=== PATIENT | male | born 1965 | race Caucasian/White ===

== ENCOUNTER 2019-04-21 22:47 | Emergency (ER) | payer BC ==
[~2019-04-21] VITALS: Ht 180.3 cm; Wt 94.3 kg
[~2019-04-21 22:47] MED LIST: ACETAMINOPHEN-1 EACH PO; Aspirin EC81 MG PO; CENTRUM SILVER1 EAC1 PO; METO50ER PO; OSTEO BI-FLEX1 EAC2 PO; Omega 3 1,0001 EACH PO; PANT40 PO; Prinivil10 MG PO; ROSU5 PO
== END 2019-04-22 04:04 | disposition home or self-care (01) ==
LOC: ER 22:47
DX: T18.128A Food in esophagus causing other injury, initial encounter (principal); E78.5 Hyperlipidemia, unspecified; K44.9 Diaphragmatic hernia without obstruction or gangrene; I21.3 ST elevation (STEMI) myocardial infarction of unspecified site; Z79.82 Long term (current) use of aspirin; Z79.899 Other long term (current) drug therapy; Z87.891 Personal history of nicotine dependence; W45.8XXA Other foreign body or object entering through skin, initial encounter
CPT/HCPCS: 96374; 99283-25; J1610

== ENCOUNTER 2019-04-27 09:04 | Day surgery (SDC) | payer BC ==
[~2019-04-27] VITALS: Ht 182.9 cm; Wt 93.8 kg
--- NOTE | 2019-04-27 11:16 | NUR ---
04/27/19 1116 Leslie Okeefe RN IS KEEPING PT UPDATED REGARDING THE DEALY.
--- NOTE | 2019-04-27 13:17 | NUR ---
04/27/19 131Ayesha Rose TATTOO MARKER IN SIGMOID. USED 2.5CC TATTOO INK
== END 2019-04-27 13:56 | disposition home or self-care (01) ==
LOC: ORSCSDS 09:04
PROVIDERS: Student in an Organized Health Care Education/Training Program
PROC: 0DBN8ZX Excision of Sigmoid Colon, Via Natural or Artificial Opening Endoscopic, Diagnostic (ICD-10-PCS; principal; 2019-04-27 11:00)
PROC: 0DBK8ZX Excision of Ascending Colon, Via Natural or Artificial Opening Endoscopic, Diagnostic (ICD-10-PCS; principal; 2019-04-27 11:00)
PROC: 3E0H8GC Introduction of Other Therapeutic Substance into Lower GI, Via Natural or Artificial Opening Endoscopic (ICD-10-PCS; principal; 2019-04-27 11:00)
PROC: 0DB48ZX Excision of Esophagogastric Junction, Via Natural or Artificial Opening Endoscopic, Diagnostic (ICD-10-PCS; principal; 2019-04-27 11:00)
PROC: 0DB68ZX Excision of Stomach, Via Natural or Artificial Opening Endoscopic, Diagnostic (ICD-10-PCS; principal; 2019-04-27 11:00)
DX: Z12.11 Encounter for screening for malignant neoplasm of colon (principal); D12.2 Benign neoplasm of ascending colon; D12.5 Benign neoplasm of sigmoid colon; K63.5 Polyp of colon; K64.8 Other hemorrhoids; K57.30 Diverticulosis of large intestine without perforation or abscess without bleeding; R13.14 Dysphagia, pharyngoesophageal phase; K21.9 Gastro-esophageal reflux disease without esophagitis; K31.7 Polyp of stomach and duodenum; E78.5 Hyperlipidemia, unspecified; I10 Essential (primary) hypertension; I25.2 Old myocardial infarction; G47.33 Obstructive sleep apnea (adult) (pediatric); Z87.891 Personal history of nicotine dependence; Z79.82 Long term (current) use of aspirin; Z79.899 Other long term (current) drug therapy
CPT/HCPCS: 88305; 88342; J2704; J7120

== ENCOUNTER 2023-06-25 10:23 | Day surgery (SDC) | payer BC ==
[2023-06-25] VITALS (13 sets, daily range): BP systolic 127–144; BP diastolic 79–95
[~2023-06-25] VITALS: Ht 182.9 cm; Wt 105.4 kg
[~2023-06-25 10:23] MED LIST changes: +ONDA4 PO
[2023-06-25] MEDS ORDERED: ALBU90OI INH (10:33)
--- NOTE | 2023-06-25 10:47 | NUR ---
Ambulatory in Day Surgery History, Chart, Medications and Allergies reviewed before start of procedure. Pre-Op teaching done. Pt verbalizes understanding. Patient States Post-Procedure ride home has been arranged.
--- NOTE | 2023-06-25 12:10 | NUR ---
06/25/23 1210 Oumar Velarde MONITOR INTACT WITH CONTINUOUS PULSE OXIMETRY, CONTINUOUS END TITAL CO2, AND INTERMITTENT BLOOD PRESSURE.History, Chart, Medications and Allergies reviewed before start of procedure.3-LEAD EKG REVIEWED WITH PHYSICIAN PRIOR TO START OF PROCEDURE.See Anesthesia record, Dr. Frazier.
--- NOTE | 2023-06-25 12:50 | NUR ---
PT TO DAY SURGERY STEP DOWN FROM PACU. PT AWAKE AND ORIENTED. ABLE TO MOVE SELF IN BED. DENIES PAIN. PT HAS 2 INCISION SITES ON RIGHT UPPER CHEST AND LOWER NECK THAT ARE COVERED WITH GAUZE AND TEGADERM; BOTH ARE C/D/I. PT HAS NO COMPLAINTS AT THIS TIME.
--- NOTE | 2023-06-25 13:10 | NUR ---
INCISION SITES REMAIN UNCHANGED. PT TOLERATING PO FLUIDS WELL. CRACKERS GIVEN.
--- NOTE | 2023-06-25 13:26 | NUR ---
Discharge instructions reviewed with patient. Patient verbalizes understanding. Copy given to patient to take home. Patient States Post-Procedure ride home has been arranged. Discharged via wheelchair to private car for ride home.
== END 2023-06-25 13:32 | disposition home or self-care (01) ==
LOC: ORSCMMR 10:23 → ORD 12:15 → ORSCMMR 13:32
PROVIDERS: Surgery
PROC: 0JH63WZ Insertion of Totally Implantable Vascular Access Device into Chest Subcutaneous Tissue and Fascia, Percutaneous Approach (ICD-10-PCS; principal; 2023-06-25 11:00)
PROC: 0DBN8ZX Excision of Sigmoid Colon, Via Natural or Artificial Opening Endoscopic, Diagnostic (ICD-10-PCS; principal; 2023-06-25 11:00)
PROC: B543ZZA Ultrasonography of Right Jugular Veins, Guidance (ICD-10-PCS; principal; 2023-06-25 11:00)
PROC: 05HM33Z Insertion of Infusion Device into Right Internal Jugular Vein, Percutaneous Approach (ICD-10-PCS; principal; 2023-06-25 11:00)
DX: R93.3 Abnormal findings on diagnostic imaging of other parts of digestive tract (principal); C18.6 Malignant neoplasm of descending colon; I10 Essential (primary) hypertension; I25.2 Old myocardial infarction; I25.10 Atherosclerotic heart disease of native coronary artery without angina pectoris; K21.9 Gastro-esophageal reflux disease without esophagitis; G47.33 Obstructive sleep apnea (adult) (pediatric); Z79.899 Other long term (current) drug therapy; Z79.82 Long term (current) use of aspirin
CPT/HCPCS: 77001; 88305; A9270; C1788; J0690; J1100; J1642; J2405; J2704; J3010; J7120

== ENCOUNTER → 2023-07-01 | Outpatient (CLI) | payer BC ==
[~2023-07-01] MED LIST changes: +ALBU90OI INH
[2023-07-02 10:19] LABS: BASOPHILS ABSOLUTE AUTO 0.07 K/mm3 (0.00-0.23); BASOPHILS PERCENT AUTO 1 % (0-2); EOSINOPHILS ABSOLUTE AUTO 0.27 K/mm3 (0.00-0.68); EOSINOPHILS PERCENT AUTO 4 % (0-6); Hematocrit 45.4 % (37.0-53.0); Hemoglobin 15.5 g/dL (13.5-17.5); IMMATURE GRAN ABSOLUTE AUTO 0.01 K/mm3 (0.00-0.10); IMMATURE GRAN PERCENT AUTO 0 % (0-1); LYMPHOCYTES ABSOLUTE AUTO 1.66 K/mm3 (0.84-5.20); LYMPHOCYTES PERCENT AUTO 26 % (21-46); MONOCYTES PERCENT AUTO 13 % (4-13); Mean Corpuscular HGB 33.6 pg (26.0-34.0); Mean Corpuscular HGB Conc 34.1 g/dL (31.5-36.5); Mean Corpuscular Volume 99 fL (80-100); Mean Platelet Volume 12.2 fL (9.1-12.4); NEUTROPHILS ABSOLUTE AUTO 3.55 K/mm3 (1.96-9.15); NEUTROPHILS PERCENT AUTO 56 % (41-73); Platelet Count 146 K/mm3 (150-400); RDW Coefficient Variation 12.3 % (11.7-14.2); RDW Standard Deviation 44.6 fL (35.1-46.3); Red Blood Cell Count 4.61 M/mm3 (4.30-5.90)
[2023-07-02 10:43] LABS: Albumin, Blood 3.7 g/dL (3.4-5.0); Bilirubin, Total 0.5 mg/dL (0.1-1.0); Bun/Creatinine Ratio 16.8 (12.0-20.0); Calcium, Blood 9.2 mg/dL (8.5-10.1); Creatinine, Blood 0.84 mg/dL (0.60-1.20); Globulin, Blood 3.7 g/dL (2.2-4.0); Potassium, Blood 4.3 mmol/L (3.5-5.5); Total Protein, Blood 7.4 g/dL (6.4-8.2)
[2023-07-06 10:40] LABS: White Blood Cell Count 6.36 K/mm3 (4.00-11.30)
== END | disposition home or self-care (01) ==
LOC: LAB 18:23 → LAB SHORT 18:23
PROVIDERS: Internal Medicine Hematology & Oncology
DX: C18.6 Malignant neoplasm of descending colon (principal); C77.2 Secondary and unspecified malignant neoplasm of intra-abdominal lymph nodes
CPT/HCPCS: 80053; 82378; 85025

== ENCOUNTER 2023-09-26 17:47 | Emergency (ER) | payer BC, OTHER ==
[~2023-09-26] VITALS: Ht 182.9 cm; Wt 94.8 kg
[2023-09-26] MEDS ORDERED: NS 1,000 ML IV SCH (18:10)
[2023-09-26 18:11] LABS: Hematocrit 36.7 % (37.0-53.0); Hemoglobin 12.7 g/dL (13.5-17.5); Mean Corpuscular HGB 35.9 pg (26.0-34.0); Mean Corpuscular HGB Conc 34.6 g/dL (31.5-36.5); Mean Corpuscular Volume 104 fL (80-100); Mean Platelet Volume 10.4 fL (9.1-12.4); Platelet Count 71 K/mm3 (150-400); RDW Coefficient Variation 15.9 % (11.7-14.2); RDW Standard Deviation 61.6 fL (35.1-46.3); Red Blood Cell Count 3.54 M/mm3 (4.30-5.90); White Blood Cell Count 4.18 K/mm3 (4.00-11.30)
[2023-09-26 18:27] LABS: Albumin/Globulin Ratio 0.8 (0.8-1.8); Bilirubin, Total 0.9 mg/dL (0.1-1.0); Bun/Creatinine Ratio 19.4 (12.0-20.0); Calcium, Blood 8.8 mg/dL (8.5-10.1); Creatinine, Blood 0.72 mg/dL (0.60-1.20); Potassium, Blood 3.8 mmol/L (3.5-5.5)
[2023-09-26] MEDS ORDERED: HYDROcodone 5-APAP 325 TAB PO ONE (18:30)
[2023-09-26] MEDS ORDERED: Norco 5-325 Ta1 EACH PO (18:30)
[2023-09-26] MEDS ORDERED: Ondansetron HCl 2 MG / ML 2ML Vial IV ONE (18:30)
[2023-09-26] MEDS ORDERED: METO10 PO (18:31)
[2023-09-26 18:32] LABS: BAND PERCENT MAN 7 % (0-8); BASOPHILS PERCENT MAN 0 % (0-2); EOSINOPHILS ABSOLUTE MAN 0.04 K/mm3 (0.00-0.68); EOSINOPHILS PERCENT MAN 1 % (0-6); LYMPHOCYTES ABSOLUTE MAN 0.66 K/mm3 (0.84-5.20); LYMPHOCYTES PERCENT MAN 16 % (21-46); MONOCYTES ABSOLUTE MAN 0.29 K/mm3 (0.16-1.47); MONOCYTES PERCENT MAN 7 % (4-13); NEUTROPHILS ABSOLUTE MAN 3.17 K/mm3 (1.96-9.15); SEG NEUTROPHILS PERCENT MAN 69 % (41-73); TOTAL CELLS COUNTED 100
[2023-09-26] MEDS ORDERED: Diflucan100 MG (18:32)
[2023-09-26 19:30] VITALS: BP 114/73
[2023-09-26 19:36] LABS: Adenovirus Not Detected (NOT DETECT); Bordetella pertussis Not Detected (NOT DETECT); Chlamydophila pneumoniae Not Detected (NOT DETECT); Coronavirus 229E Not Detected (NOT DETECT); Coronavirus HKU1 Not Detected (NOT DETECT); Coronavirus NL63 Not Detected (NOT DETECT); Coronavirus OC43 Not Detected (NOT DETECT); Human Metapneumovirus Not Detected (NOT DETECT); Human Rhinovirus/Enterovirus Not Detected (NOT DETECT); Influenza A/2009-H1 Detected (NOT DETECT); Influenza A/H1 Not Detected (NOT DETECT); Influenza A/H3 Not Detected (NOT DETECT); Influenza B Not Detected (NOT DETECT); Mycoplasma pneumoniae Not Detected (NOT DETECT); Parainfluenza Virus 1 Not Detected (NOT DETECT); Parainfluenza Virus 2 Not Detected (NOT DETECT); Parainfluenza Virus 3 Not Detected (NOT DETECT); Parainfluenza Virus 4 Not Detected (NOT DETECT); Respiratory Syncytial Virus Not Detected (NOT DETECT); SARS-Cov-2 (COVID-19), BioFire Not Detected (NOT DETECT)
[2023-09-26 20:01] LABS: Source, Urine Voided
[2023-09-26 20:04] LABS: Bilirubin, Urine Neg (Neg); Blood, Urine Neg (Neg); Glucose Qualitative, Urine Neg (Neg); Ketones, Urine Neg (Neg); Leukocyte Esterase, Urine Neg (Neg); Nitrite, Urine Neg (Neg); Protein, Urine 1+ (Neg); Specific Gravity, Urine 1.015 (1.003-1.022); Urobilinogen, Urine NORM (Normal)
[2023-09-26 20:11] LABS: Appearance, Urine Clear (Clear); Color, Urine Yellow (P-Yellow)
[2023-09-26] MEDS ORDERED: Oseltamivir Phosphate 75 MG Cap PO ONE (20:15)
[2023-09-26] MEDS ORDERED: OSEL75CA PO (20:35)
== END 2023-09-26 20:43 | disposition home or self-care (01) ==
LOC: ER 17:47
PROVIDERS: Emergency Medicine
DX: J10.1 Influenza due to other identified influenza virus with other respiratory manifestations (principal); C18.9 Malignant neoplasm of colon, unspecified; Z87.891 Personal history of nicotine dependence; I25.2 Old myocardial infarction; E78.5 Hyperlipidemia, unspecified; Z79.82 Long term (current) use of aspirin; Z79.899 Other long term (current) drug therapy; Z88.8 Allergy status to other drugs, medicaments and biological substances
CPT/HCPCS: 0202U; 36415; 71045; 80053; 83605; 85025; 87040; 96361; 96374; 99283-25; A9270; J2405; J7030

== ENCOUNTER 2023-10-18 18:55 | Emergency (ER) | payer BC, OTHER ==
[~2023-10-18] VITALS: Ht 182.9 cm; Wt 90.7 kg
[~2023-10-18 18:55] MED LIST changes: +Diflucan100 MG; +METO10 PO; +Norco 5-325 Ta1 EACH PO; +OSEL75CA PO
[2023-10-18 19:57] LABS: BASOPHILS ABSOLUTE AUTO 0.02 K/mm3 (0.00-0.23); BASOPHILS PERCENT AUTO 1 % (0-2); EOSINOPHILS ABSOLUTE AUTO 0.05 K/mm3 (0.00-0.68); EOSINOPHILS PERCENT AUTO 1 % (0-6); Hematocrit 30.7 % (37.0-53.0); Hemoglobin 10.7 g/dL (13.5-17.5); IMMATURE GRAN ABSOLUTE AUTO 0.01 K/mm3 (0.00-0.10); IMMATURE GRAN PERCENT AUTO 0 % (0-1); LYMPHOCYTES ABSOLUTE AUTO 1.29 K/mm3 (0.84-5.20); LYMPHOCYTES PERCENT AUTO 36 % (21-46); MONOCYTES ABSOLUTE AUTO 1.21 K/mm3 (0.16-1.47); MONOCYTES PERCENT AUTO 34 % (4-13); Mean Corpuscular HGB 36.3 pg (26.0-34.0); Mean Corpuscular HGB Conc 34.9 g/dL (31.5-36.5); Mean Corpuscular Volume 104 fL (80-100); Mean Platelet Volume 10.6 fL (9.1-12.4); NEUTROPHILS ABSOLUTE AUTO 1.01 K/mm3 (1.96-9.15); NEUTROPHILS PERCENT AUTO 28 % (41-73); Platelet Count 109 K/mm3 (150-400); RDW Coefficient Variation 15.9 % (11.7-14.2); RDW Standard Deviation 60.3 fL (35.1-46.3); Red Blood Cell Count 2.95 M/mm3 (4.30-5.90); White Blood Cell Count 3.59 K/mm3 (4.00-11.30)
[2023-10-18 20:04] LABS: Source, Urine Clean Catch
[2023-10-18 20:07] LABS: Appearance, Urine Clear (Clear); Bilirubin, Urine Neg (Neg); Blood, Urine 3+ (Neg); Color, Urine Yellow (P-Yellow); Glucose Qualitative, Urine Neg (Neg); Ketones, Urine Neg (Neg); Leukocyte Esterase, Urine Neg (Neg); Nitrite, Urine Neg (Neg); Protein, Urine Neg (Neg); Specific Gravity, Urine 1.015 (1.003-1.022); Urobilinogen, Urine NORM (Normal)
[2023-10-18 20:14] LABS: Bacteria Few /hpf; Squamous Epithelial Cells Rare /hpf (Few); White Blood Cells, Urine 0-2 /hpf (0-5)
[2023-10-18 20:22] LABS: Albumin/Globulin Ratio 0.9 (0.8-1.8); Bilirubin, Total 0.7 mg/dL (0.1-1.0); Bun/Creatinine Ratio 14.7 (12.0-20.0); Calcium, Blood 8.5 mg/dL (8.5-10.1); Creatinine, Blood 1.84 mg/dL (0.60-1.20); Globulin, Blood 3.5 g/dL (2.2-4.0); Magnesium, Blood 1.2 mg/dL (1.6-2.4); Potassium, Blood 4.7 mmol/L (3.5-5.5); Total Protein, Blood 6.5 g/dL (6.4-8.2)
[2023-10-18] MEDS ORDERED: NS 1,000 ML IV SCH (20:45)
[2023-10-18 21:04] LABS: Influenza A, PCR NEGATIVE (NEGATIVE); Influenza B, PCR NEGATIVE (NEGATIVE); Resp Syncytial Virus, PCR NEGATIVE (NEGATIVE); SARS-Cov-2 (COVID-19) PCR, MMC NEGATIVE (NEGATIVE)
[2023-10-18 23:28] VITALS: BP 110/65
== END 2023-10-18 23:29 | disposition home or self-care (01) ==
LOC: ER 18:55
PROVIDERS: Physician Assistant
DX: N17.9 Acute kidney failure, unspecified (principal); E86.0 Dehydration; R50.9 Fever, unspecified; C78.7 Secondary malignant neoplasm of liver and intrahepatic bile duct; I25.2 Old myocardial infarction; Z88.8 Allergy status to other drugs, medicaments and biological substances; Z79.899 Other long term (current) drug therapy; Z79.82 Long term (current) use of aspirin; Z87.891 Personal history of nicotine dependence
CPT/HCPCS: 0241U; 71046; 80053; 81001; 83605; 83735; 85025; 93005; 93010; 96360; 99284-25; J7030

== ENCOUNTER 2023-12-30 15:51 | Emergency (ER) | payer BC, OTHER ==
[~2023-12-30] VITALS: Ht 182.9 cm; Wt 93.9 kg
[~2023-12-30 15:51] MED LIST changes: +AMOCLA875 PO; +Acetaminophen325 M1 PO; +Aldactone50 MG PO; +BUME2 PO; +DEXA2 PO; +FENTANYL1 EA10 TOP; +HYDROCODONE-AC1 EA19 PO; +K-Phos Origina500 MG PO; +METR500 PO; +PANTOPRAZOLE SO40 M2 PO; +POTCHL20ER PO; +REGLAN1013 PO
[2023-12-30] MEDS ORDERED: MIRT15ST (20:57)
[2023-12-30] MEDS ORDERED: OXYC10ER PO (20:58)
[2023-12-30] MEDS ORDERED: METO5A PO (20:58)
[2023-12-30] MEDS ORDERED: ONDA4 PO (20:58)
[2023-12-30] MEDS ORDERED: CIME400 PO (22:38)
[2023-12-30 22:56] VITALS: BP 145/84
== END 2023-12-30 22:56 | disposition home or self-care (01) ==
LOC: ER 15:51
DX: R10.9 Unspecified abdominal pain (principal); C18.9 Malignant neoplasm of colon, unspecified; R60.0 Localized edema; Z88.8 Allergy status to other drugs, medicaments and biological substances; Z79.899 Other long term (current) drug therapy; Z79.891 Long term (current) use of opiate analgesic; I25.2 Old myocardial infarction; E78.5 Hyperlipidemia, unspecified; Z87.891 Personal history of nicotine dependence
CPT/HCPCS: 74177; 99284-25; Q9967

== ENCOUNTER 2024-03-07 12:05 | Day surgery (SDC) | payer BC, OTHER ==
[~2024-03-07] VITALS: Ht 182.9 cm; Wt 101.9 kg
[~2024-03-07 12:05] MED LIST changes: +Acetaminophen650 M1 PO; +BACLOFEN10 M4 PO; +Bumetanide2 MG PO; +CIME400 PO; +DRAMAMINE25 M3 PO; -FENTANYL1 EA10 TOP; +FENTANYL1 EAC7 TOP; +FUROSEMIDE40 MG PO; +GABA300 PO; +Lactated Ringer's 1,000 ML IV ONE; +METO5A PO; +MIRT15ST; +MIRTAZAPINE7.5 M1 PO; +Methocarbamol750 MG PO; +OXYC10ER PO; +OXYC10TA19 PO; +SPIRONOLACTONE50 MG PO; +TRAZ50 PO; +Voltaren100 GM TOP; +Zofran8 MG PO; +propofoL 50 ML IV ONE
[2024-03-07] MEDS ORDERED: Lactated Ringer's 1,000 ML IV ONE (13:00)
--- NOTE | 2024-03-07 14:29 | NUR ---
03/07/24 1429 Lisa Shen PT. WITH FRAGILE SKIN. PT. WITH MULTIPLE REDNESS ALL OVER HIS ARMS. PT. WITH LARGE AMT. SWELLING IN HIS LEGS & ABDOMEN. DR. TRINIDAD AWARE.
--- NOTE | 2024-03-07 15:03 | NUR ---
03/07/24 1503 Lisa Shen PT. VERBALIZED NO DIFFERENT PAIN THAN WHEN HE CAME IN. PT. DENIES ANY TROUBLE SWALLOWING. PT. DENIES HAVING A SORE THROAT.
[2024-03-07 15:07] VITALS: BP 100/61
== END 2024-03-07 14:20 | disposition home or self-care (01) ==
LOC: ORSCSDS 12:05
PROVIDERS: Surgery
PROC: 0DB78ZX Excision of Stomach, Pylorus, Via Natural or Artificial Opening Endoscopic, Diagnostic (ICD-10-PCS; principal; 2024-03-07 13:00)
DX: K29.70 Gastritis, unspecified, without bleeding (principal); C18.9 Malignant neoplasm of colon, unspecified; C78.7 Secondary malignant neoplasm of liver and intrahepatic bile duct; C77.9 Secondary and unspecified malignant neoplasm of lymph node, unspecified; D64.89 Other specified anemias; R93.5 Abnormal findings on diagnostic imaging of other abdominal regions, including retroperitoneum; D61.1 Drug-induced aplastic anemia; D63.8 Anemia in other chronic diseases classified elsewhere; I25.10 Atherosclerotic heart disease of native coronary artery without angina pectoris; I25.2 Old myocardial infarction; I12.9 Hypertensive chronic kidney disease with stage 1 through stage 4 chronic kidney disease, or unspecified chronic kidney disease; N18.9 Chronic kidney disease, unspecified; E78.5 Hyperlipidemia, unspecified; G47.33 Obstructive sleep apnea (adult) (pediatric); Z79.899 Other long term (current) drug therapy; Z79.82 Long term (current) use of aspirin; Z87.891 Personal history of nicotine dependence
CPT/HCPCS: 88305; 88342; J2704; J7120

== ENCOUNTER 2024-03-10 12:54 | Inpatient (IN) | payer BC, OTHER ==
[~2024-03-10] VITALS: Ht 182.9 cm; Wt 97.0 kg
[~2024-03-10 12:54] MED LIST changes: -Lactated Ringer's 1,000 ML IV ONE; -propofoL 50 ML IV ONE
[2024-03-10 13:57] LABS: Source, Urine Clean Catch
[2024-03-10 13:59] LABS: Appearance, Urine Clear (Clear); Bilirubin, Urine Neg (Neg); Blood, Urine Neg (Neg); Color, Urine Yellow (P-Yellow); Glucose Qualitative, Urine Neg (Neg); Ketones, Urine Neg (Neg); Leukocyte Esterase, Urine Neg (Neg); Nitrite, Urine Neg (Neg); Protein, Urine Neg (Neg); Specific Gravity, Urine 1.015 (1.003-1.022); Urobilinogen, Urine NORM (Normal)
[2024-03-10 14:16] LABS: BASOPHILS ABSOLUTE AUTO 0.07 K/mm3 (0.00-0.23); BASOPHILS PERCENT AUTO 1 % (0-2); EOSINOPHILS ABSOLUTE AUTO 0.13 K/mm3 (0.00-0.68); EOSINOPHILS PERCENT AUTO 2 % (0-6); Hematocrit 31.3 % (37.0-53.0); Hemoglobin 10.2 g/dL (13.5-17.5); IMMATURE GRAN ABSOLUTE AUTO 0.02 K/mm3 (0.00-0.10); IMMATURE GRAN PERCENT AUTO 0 % (0-1); LYMPHOCYTES ABSOLUTE AUTO 1.04 K/mm3 (0.84-5.20); LYMPHOCYTES PERCENT AUTO 15 % (21-46); MONOCYTES ABSOLUTE AUTO 1.07 K/mm3 (0.16-1.47); MONOCYTES PERCENT AUTO 15 % (4-13); Mean Corpuscular HGB 29.5 pg (26.0-34.0); Mean Corpuscular HGB Conc 32.6 g/dL (31.5-36.5); Mean Corpuscular Volume 91 fL (80-100); Mean Platelet Volume 9.2 fL (9.1-12.4); NEUTROPHILS ABSOLUTE AUTO 4.78 K/mm3 (1.96-9.15); NEUTROPHILS PERCENT AUTO 67 % (41-73); Platelet Count 145 K/mm3 (150-400); RDW Standard Deviation 59.8 fL (35.1-46.3); Red Blood Cell Count 3.46 M/mm3 (4.30-5.90); White Blood Cell Count 7.11 K/mm3 (4.00-11.30)
[2024-03-10 14:33] LABS: Albumin, Blood 2.3 g/dL (3.4-5.0); Albumin/Globulin Ratio 0.6 (0.8-1.8); Bilirubin, Total 0.8 mg/dL (0.1-1.0); Bun/Creatinine Ratio 10.2 (12.0-20.0); Calcium, Blood 7.9 mg/dL (8.5-10.1); Creatinine, Blood 0.98 mg/dL (0.60-1.20); Globulin, Blood 3.6 g/dL (2.2-4.0); Potassium, Blood 3.8 mmol/L (3.5-5.5); Total Protein, Blood 5.9 g/dL (6.4-8.2)
[2024-03-10] MEDS ORDERED: CEPH500 PO (15:48)
[2024-03-10] MEDS ORDERED: Lidocaine 2% Jelly Uro-Jet UR ONE (15:55)
[2024-03-10] MEDS ORDERED: Nystatin 100,000 Unit/GM CREAM 15 GM TOP ONE (16:00)
[2024-03-10] MEDS ORDERED: Furosemide 10 MG/ML 10ML Vial IV ONE (16:00)
[2024-03-10] MEDS ORDERED: Polyethylene Glycol 3350 17 gm PO PRN (17:50)
[2024-03-10] MEDS ORDERED: OxyCODONE HCL 5 MG TAB PO PRN (17:50)
[2024-03-10] MEDS ORDERED: Ondansetron HCl 2 MG / ML 2ML Vial IV PRN (17:50)
[2024-03-10] MEDS ORDERED: Docusate Sodium/Senna 1 Tab PO PRN (17:55)
[2024-03-10] MEDS ORDERED: Morphine Sulfate 4 MG/1 ML Injection IV PRN (17:55)
[2024-03-10] MEDS ORDERED: Metoclopramide HCl 5MG / ML 2ML Vial IV PRN (17:55)
[2024-03-10] MEDS ORDERED: Furosemide 40 MG Tab PO SCH (18:00)
[2024-03-10 19:53] VITALS: BP 125/82
[2024-03-10] MEDS ORDERED: Methocarbamol 500 MG Tab PO PRN (20:45)
[2024-03-10] MEDS ORDERED: FentaNYL 50 MCG Patch TOP SCH (20:45)
[2024-03-10] MEDS ORDERED: Gabapentin 300 MG Cap PO SCH (21:00)
[2024-03-11 02:44] VITALS: BP 114/65
--- NOTE | 2024-03-11 04:57 | NUR ---
NOC SHIFT SUMMARY PT HAS BEEN VERY PAINFUL THIS SHIFT IN HIS LEFT FOOT, LEGS, SCROTUM, BLADDER AND ABDOMEN BUT RESPONDS WELL TO PAIN MEDICATION AND IS ABLE TO NAP IN BETWEEN PAIN MED DOSES. PT HAS AN ORDER FOR JENNY HOSE. HE IS ABLE TO TOLERATE JENNY HOSE ON HIS RIGHT LEG BUT ASKED ME TO TAKE OFF THE ONE ON HIS LEFT LEG BECAUSE IT WAS TOO PAINFUL. I WISAM WRAPPED HIS LEFT LEG TO HELP WITH SWELLING. PT ADMITTED WITH CHRONIC FOOT ULCERS ON THE TOP OF HIS LEFT FOOT (SEE PICS IN PAPER CHART). APPARENTLY HE GETS WOUND CARE TWICE A WEEK. PT HAS A RASH IN BETWEEN HIS SCROTUM AND HIS THIGHS AND NYSTATIN CREAM WAS APPLIED IN THE ER. HE WAS GIVEN IV LASIX IN THE ER AND HAD 2000ML OF URINE OUT BEFORE COMING TO THE FLOOR. I MADE HIM A SLING FOR HIS VERY SWOLLEN SCROTUM. HE DOES HAVE AN UNACCESSED R CHEST PORT A CATH BUT FOR NOW HAS A FUNCTIONING LAC IV SL. NEW FENTANYL PATCH APPLIED TO HIS LEFT CHEST. OLD FENTANYL PATCH FROM HOME WASTED IN SHARPS CONTAINER AND WITNESSED BY CHARGE NURSE GRACY LEGER. PT IS ABLE TO WALK WITH A FWW AND X1 ASSIST. HE IS A BIT FORGETFUL AND APPEARS TO HAVE SOME STML. BED ALARM IS ON, FALL PRECAUTIONS IN PLACE, CALL LIGHT WITHIN REACH.
[2024-03-11 05:21] LABS: BASOPHILS ABSOLUTE AUTO 0.08 K/mm3 (0.00-0.23); BASOPHILS PERCENT AUTO 1 % (0-2); EOSINOPHILS ABSOLUTE AUTO 0.16 K/mm3 (0.00-0.68); EOSINOPHILS PERCENT AUTO 3 % (0-6); Hematocrit 26.8 % (37.0-53.0); Hemoglobin 8.7 g/dL (13.5-17.5); IMMATURE GRAN ABSOLUTE AUTO 0.01 K/mm3 (0.00-0.10); IMMATURE GRAN PERCENT AUTO 0 % (0-1); LYMPHOCYTES ABSOLUTE AUTO 1.08 K/mm3 (0.84-5.20); LYMPHOCYTES PERCENT AUTO 19 % (21-46); MONOCYTES ABSOLUTE AUTO 0.67 K/mm3 (0.16-1.47); MONOCYTES PERCENT AUTO 12 % (4-13); Mean Corpuscular HGB Conc 32.5 g/dL (31.5-36.5); Mean Corpuscular Volume 89 fL (80-100); Mean Platelet Volume 9.3 fL (9.1-12.4); NEUTROPHILS ABSOLUTE AUTO 3.74 K/mm3 (1.96-9.15); NEUTROPHILS PERCENT AUTO 65 % (41-73); Platelet Count 125 K/mm3 (150-400); RDW Coefficient Variation 18.2 % (11.7-14.2); RDW Standard Deviation 59.7 fL (35.1-46.3); White Blood Cell Count 5.74 K/mm3 (4.00-11.30)
[2024-03-11 05:33] LABS: International Normalized Ratio 1.24; Prothrombin Time Results 13.1 Sec (9.7-11.5)
[2024-03-11 05:52] LABS: Albumin, Blood 1.8 g/dL (3.4-5.0); Albumin/Globulin Ratio 0.6 (0.8-1.8); Bilirubin, Total 0.9 mg/dL (0.1-1.0); Bun/Creatinine Ratio 12.4 (12.0-20.0); Calcium, Blood 7.4 mg/dL (8.5-10.1); Creatinine, Blood 0.81 mg/dL (0.60-1.20); Magnesium, Blood 1.8 mg/dL (1.6-2.4); Potassium, Blood 3.6 mmol/L (3.5-5.5); Total Protein, Blood 4.8 g/dL (6.4-8.2)
[2024-03-11] MEDS ORDERED: Pantoprazole Sodium 40 MG Tab PO SCH (07:30)
[2024-03-11] MEDS ORDERED: Calcium Carbonate 1,250 MG TABLET PO SCH (08:00)
[2024-03-11] MEDS ORDERED: Potassium Chloride 20 MEQ TabCR PO ONE (08:00)
[2024-03-11] MEDS ORDERED: Magnesium Oxide 400 MG Tab PO SCH (08:00)
[2024-03-11 08:12] VITALS: BP 101/65
[2024-03-11] MEDS ORDERED: Spironolactone 50 MG Tab PO SCH (09:00)
[2024-03-11] MEDS ORDERED: Enoxaparin 40 MG/0.4 ML SYR SC SCH (09:00)
[2024-03-11] MEDS ORDERED: Potassium Chloride 20 MEQ TabCR PO SCH (09:00)
[2024-03-11] MEDS ORDERED: Furosemide 40 MG Tab PO SCH (09:00)
[2024-03-11 17:39] VITALS: BP 136/60
--- NOTE | 2024-03-11 18:53 | NUR ---
SHIFT SUMMARY PT A&OX4, VSS. C/O OF NAUSEA X1 THIS SHIFT, MEDICATED PER EMAR. AZUL CATHETER DRAINING YELLOW URINE TO GRAVITY. PT ABLE TO AMBULATE TO BATHROOM W/ FWW TO HAVE 2 BOWEL MOVEMENTS. C/O OF PAIN, MEDICATED PER EMAR X1. FENTANYL PATCH ON PER EMAR. PT UP IN RECLINER WITH FEET UP MOST OF DAY. CURRENTLY IN BED. PARTNER IN ROOM THIS AM AND AFTERNOON. PT HOPING TO GO HOME TOMORROW. FEET/LEGS ELEVATED ON PILLOWS, CALL LIGHT IN REACH.
[2024-03-11 19:17] VITALS: BP 118/86
[2024-03-12 02:24] VITALS: BP 103/60
[2024-03-12 05:22] LABS: Hematocrit 30.6 % (37.0-53.0); Hemoglobin 9.8 g/dL (13.5-17.5); Mean Corpuscular HGB 29.1 pg (26.0-34.0); Mean Corpuscular Volume 91 fL (80-100); Mean Platelet Volume 9.5 fL (9.1-12.4); Platelet Count 133 K/mm3 (150-400); RDW Coefficient Variation 18.2 % (11.7-14.2); RDW Standard Deviation 61.1 fL (35.1-46.3); Red Blood Cell Count 3.37 M/mm3 (4.30-5.90); White Blood Cell Count 4.94 K/mm3 (4.00-11.30)
--- NOTE | 2024-03-12 05:38 | NUR ---
SHIFT SUMMARY: NO ACUTE EVENTS. MEDICATED FOR PAIN X 1, SLEPT AFTERWARD. APPEARS TO BE SLIGHTLY CONFUSED AT TIMES. IS WEARING COMPRESSION STOCKINGS. GOOD URINE OUTPUT FROM AZUL. NUMEROUS BRUISES AND SKIN TEAR OF L ELBOW. SLEPT MOST OF THE NIGHT.
[2024-03-12 05:52] LABS: BASOPHILS ABSOLUTE MAN 0.04 K/mm3 (0.00-0.23); BASOPHILS PERCENT MAN 1 % (0-2); EOSINOPHILS ABSOLUTE MAN 0.04 K/mm3 (0.00-0.68); EOSINOPHILS PERCENT MAN 1 % (0-6); LYMPHOCYTES ABSOLUTE MAN 0.74 K/mm3 (0.84-5.20); LYMPHOCYTES PERCENT MAN 15 % (21-46); MONOCYTES ABSOLUTE MAN 0.24 K/mm3 (0.16-1.47); MONOCYTES PERCENT MAN 5 % (4-13); NEUTROPHILS ABSOLUTE MAN 3.85 K/mm3 (1.96-9.15); SEG NEUTROPHILS PERCENT MAN 78 % (41-73); TOTAL CELLS COUNTED 100
[2024-03-12 05:57] LABS: Albumin/Globulin Ratio 0.6 (0.8-1.8); Bilirubin, Total 0.8 mg/dL (0.1-1.0); Bun/Creatinine Ratio 10.8 (12.0-20.0); Creatinine, Blood 0.84 mg/dL (0.60-1.20); Globulin, Blood 3.4 g/dL (2.2-4.0); Magnesium, Blood 1.4 mg/dL (1.6-2.4); Potassium, Blood 3.9 mmol/L (3.5-5.5); Total Protein, Blood 5.4 g/dL (6.4-8.2)
[2024-03-12 07:25] VITALS: BP 102/65
[2024-03-12] MEDS ORDERED: DOCUZEN 8.6-501 EACH PO (10:40)
[2024-03-12] MEDS ORDERED: MIRALAX17 GM PO (10:41)
[2024-03-12] MEDS ORDERED: ALDACTONE100 MG PO (10:41)
[2024-03-12] MEDS ORDERED: CALCIUM CIT 311 EAC7 PO (10:43)
[2024-03-12] MEDS ORDERED: SODCHL1 PO (10:44)
[2024-03-12] MEDS ORDERED: MAGNESIUM OXID500 MG PO (10:44)
--- NOTE | 2024-03-12 14:42 | NUR ---
PT DISCHARGED WITH ALL BELONGINGS WITH S/O. VERBALIZED UNDERSTANDING OF DISCHARGE INSTRUCTIONS.
== END 2024-03-12 12:43 | disposition home health service (06) | DRG 432 ==
LOC: ER 12:54 → MEDS 17:47 → ENPENDDIS 03-12 12:09 → MEDS 03-12 12:43
PROVIDERS: Physician Assistant; ADMIT Family Medicine
DX: K74.60 Unspecified cirrhosis of liver (principal); D61.1 Drug-induced aplastic anemia; B37.49 Other urogenital candidiasis; R18.8 Other ascites; C18.9 Malignant neoplasm of colon, unspecified; C78.7 Secondary malignant neoplasm of liver and intrahepatic bile duct; C77.9 Secondary and unspecified malignant neoplasm of lymph node, unspecified; E87.70 Fluid overload, unspecified; R33.9 Retention of urine, unspecified; I10 Essential (primary) hypertension; I25.10 Atherosclerotic heart disease of native coronary artery without angina pectoris; R29.6 Repeated falls; K44.9 Diaphragmatic hernia without obstruction or gangrene; Z88.8 Allergy status to other drugs, medicaments and biological substances; Z79.899 Other long term (current) drug therapy; Z79.891 Long term (current) use of opiate analgesic; E66.3 Overweight; I25.2 Old myocardial infarction; Z95.5 Presence of coronary angioplasty implant and graft; E78.5 Hyperlipidemia, unspecified; K21.9 Gastro-esophageal reflux disease without esophagitis; Z98.890 Other specified postprocedural states; Z68.31 Body mass index [BMI] 31.0-31.9, adult; K29.70 Gastritis, unspecified, without bleeding; D64.89 Other specified anemias; R93.5 Abnormal findings on diagnostic imaging of other abdominal regions, including retroperitoneum; D63.8 Anemia in other chronic diseases classified elsewhere; I12.9 Hypertensive chronic kidney disease with stage 1 through stage 4 chronic kidney disease, or unspecified chronic kidney disease; N18.9 Chronic kidney disease, unspecified; G47.33 Obstructive sleep apnea (adult) (pediatric); Z79.82 Long term (current) use of aspirin; Z87.891 Personal history of nicotine dependence
CPT/HCPCS: 36415; 51702; 70450; 71045; 74177; 80053; 81003; 82330; 83735; 83880; 84100; 85025; 85610; 88305; 88342; 96374-59; 97162; 97530; 99285-25; A9270; J1650; J1940; J2270; J2405; J2704; J7120; Q9967

== ENCOUNTER 2024-03-13 15:47 | Inpatient (IN) | payer BC, OTHER ==
[~2024-03-13] VITALS: Ht 182.9 cm; Wt 97.6 kg
[~2024-03-13 15:47] MED LIST changes: +ALDACTONE100 MG PO; +CALCIUM CIT 311 EAC7 PO; +CEPH500 PO; +DOCUZEN 8.6-501 EACH PO; +MAGNESIUM OXID500 MG PO; +MIRALAX17 GM PO; +SODCHL1 PO
[2024-03-13 16:40] LABS: BASOPHILS ABSOLUTE AUTO 0.05 K/mm3 (0.00-0.23); BASOPHILS PERCENT AUTO 1 % (0-2); EOSINOPHILS ABSOLUTE AUTO 0.12 K/mm3 (0.00-0.68); EOSINOPHILS PERCENT AUTO 2 % (0-6); Hematocrit 31.2 % (37.0-53.0); IMMATURE GRAN ABSOLUTE AUTO 0.01 K/mm3 (0.00-0.10); IMMATURE GRAN PERCENT AUTO 0 % (0-1); LYMPHOCYTES ABSOLUTE AUTO 1.19 K/mm3 (0.84-5.20); LYMPHOCYTES PERCENT AUTO 18 % (21-46); MONOCYTES ABSOLUTE AUTO 0.95 K/mm3 (0.16-1.47); MONOCYTES PERCENT AUTO 15 % (4-13); Mean Corpuscular HGB 29.2 pg (26.0-34.0); Mean Corpuscular HGB Conc 32.1 g/dL (31.5-36.5); Mean Corpuscular Volume 91 fL (80-100); Mean Platelet Volume 9.4 fL (9.1-12.4); NEUTROPHILS ABSOLUTE AUTO 4.14 K/mm3 (1.96-9.15); NEUTROPHILS PERCENT AUTO 64 % (41-73); Platelet Count 155 K/mm3 (150-400); RDW Coefficient Variation 18.3 % (11.7-14.2); RDW Standard Deviation 60.4 fL (35.1-46.3); Red Blood Cell Count 3.42 M/mm3 (4.30-5.90); White Blood Cell Count 6.46 K/mm3 (4.00-11.30)
[2024-03-13 17:01] LABS: Albumin, Blood 2.3 g/dL (3.4-5.0); Albumin/Globulin Ratio 0.6 (0.8-1.8); Bilirubin, Total 0.7 mg/dL (0.1-1.0); Bun/Creatinine Ratio 9.7 (12.0-20.0); Creatinine, Blood 0.93 mg/dL (0.60-1.20); Globulin, Blood 3.8 g/dL (2.2-4.0); Potassium, Blood 4.1 mmol/L (3.5-5.5); Total Protein, Blood 6.1 g/dL (6.4-8.2)
[2024-03-13] MEDS ORDERED: HYDROmorphone HCl/Pf 1MG SYR IV ONE ×2 (18:25→20:20)
[2024-03-13] MEDS ORDERED: Ondansetron HCl 2 MG / ML 2ML Vial IV ONE (18:25)
[2024-03-13 19:27] LABS: Source, Urine Clean Catch
[2024-03-13 19:41] LABS: Appearance, Urine Clear (Clear); Bilirubin, Urine Neg (Neg); Blood, Urine 2+ (Neg); Color, Urine Yellow (P-Yellow); Glucose Qualitative, Urine Neg (Neg); Ketones, Urine Neg (Neg); Leukocyte Esterase, Urine Neg (Neg); Nitrite, Urine Neg (Neg); Protein, Urine Neg (Neg); Specific Gravity, Urine 1.015 (1.003-1.022); Urobilinogen, Urine NORM (Normal)
[2024-03-13 20:09] LABS: Amorphous Light (0-Heavy); Bacteria Mod /hpf; Mucus Light (0-Heavy); Red Blood Cells, Urine 0-2 /hpf (0-2); Squamous Epithelial Cells Rare /hpf (Few); White Blood Cells, Urine 0-2 /hpf (0-5)
[2024-03-13] MEDS ORDERED: Furosemide 10 MG/ML 4ML Vial IV ONE (20:20)
[2024-03-13] MEDS ORDERED: Piperacillin/Tazobactam Sod 3.375 GM in NS 100 ML IV ONE (20:20)
[2024-03-13] MEDS ORDERED: FentaNYL Citrate 50 MCG/ML 2 ML Injection IV PRN (22:25)
[2024-03-13] MEDS ORDERED: Ondansetron 4 MG TAB PO PRN (22:45)
[2024-03-13] MEDS ORDERED: Metoclopramide HCl 10 MG Tab PO PRN (22:45)
[2024-03-13] MEDS ORDERED: Acetaminophen 325 MG TABLET PO PRN (22:50)
[2024-03-13] MEDS ORDERED: Polyethylene Glycol 3350 17 gm PO PRN (22:55)
[2024-03-13] MEDS ORDERED: OxyCODONE HCL 5 MG TAB PO PRN (22:55)
[2024-03-13] MEDS ORDERED: FentaNYL 50 MCG Patch TOP SCH (22:55)
[2024-03-13] MEDS ORDERED: Methocarbamol 500 MG Tab PO PRN (22:55)
[2024-03-13] MEDS ORDERED: Docusate Sodium/Senna 1 Tab PO PRN (23:10)
[2024-03-13 23:41] VITALS: BP 131/78
--- NOTE | 2024-03-14 02:29 | NUR ---
ADMIT NOTE 58 YR OLD MALE ADMITTED TO FLOOR FROM THE ED AFTER RECENT ADMISSION - SEE HX OF PT. DX CELULITIS OF GROIN AREA. NOTE SEVERAL AREAS OF BRUISES AND CONTUSIONS, PT VOICED HE "FELL OFF A LADDER", (SEE PICS IN CHART). ALERT TO QUESTIONS ASKED, BUT NOTE SOME FORGETFULNESS WHEN TALKING. ORIENTED TO USE OF CALL LIGHT. TOLERATES FLUIDS AND SNACK. RAILS UP X 2, CALL LIGHT IN REACH AND BED IN LOW POSITION FOR SAFETY. WILL CONT TO MONITOR
[2024-03-14] MEDS ORDERED: Vancomycin HCL 2,500 MG in NS 500 ML IV ONE (03:45)
[2024-03-14] MEDS ORDERED: Vancomycin HCL 1,500 MG in NS 250 ML IV SCH ×2 (04:00→16:00)
--- NOTE | 2024-03-14 05:09 | NUR ---
BACK GRAY CLOTH WASHER SUMMARY ADMITTED EARLIER IN THE SHIFT WITH DX OF CELLULITIS OF GROIN AREA. VSS. ALSO HAS OTHER SKIN MARKINGS - SEE PICS IN CHART. VOICED HE "FELL OFF A LADDER", TO GET SAID MARKINGS. AZUL TO DOWN DRAIN - CLEAR YELLOW URINE. IV ANTIBIOTICS ADMINISTERED - SEE MAR FOR DETAILS. HAS BEEN RESTING QUIETLY WITH OCCASIONAL INTERRUPTIONS FOR MEDS, ETC. CALL LIGHT IN REACH, RAILS UP X 2 AND BED IN LOW POSITION FOR SAFETY. WILL CONTINUE TO MONITOR
[2024-03-14] MEDS ORDERED: CefTRIAXone Sodium 1,000 MG in NS 100 ML IV SCH (06:00)
[2024-03-14 06:13] LABS: BASOPHILS ABSOLUTE AUTO 0.06 K/mm3 (0.00-0.23); BASOPHILS PERCENT AUTO 1 % (0-2); EOSINOPHILS ABSOLUTE AUTO 0.16 K/mm3 (0.00-0.68); EOSINOPHILS PERCENT AUTO 4 % (0-6); Hematocrit 26.4 % (37.0-53.0); Hemoglobin 8.5 g/dL (13.5-17.5); IMMATURE GRAN ABSOLUTE AUTO 0.01 K/mm3 (0.00-0.10); IMMATURE GRAN PERCENT AUTO 0 % (0-1); LYMPHOCYTES ABSOLUTE AUTO 1.13 K/mm3 (0.84-5.20); LYMPHOCYTES PERCENT AUTO 25 % (21-46); MONOCYTES ABSOLUTE AUTO 0.74 K/mm3 (0.16-1.47); MONOCYTES PERCENT AUTO 16 % (4-13); Mean Corpuscular HGB 29.3 pg (26.0-34.0); Mean Corpuscular HGB Conc 32.2 g/dL (31.5-36.5); Mean Corpuscular Volume 91 fL (80-100); Mean Platelet Volume 8.9 fL (9.1-12.4); NEUTROPHILS ABSOLUTE AUTO 2.43 K/mm3 (1.96-9.15); NEUTROPHILS PERCENT AUTO 54 % (41-73); Platelet Count 122 K/mm3 (150-400); RDW Coefficient Variation 18.5 % (11.7-14.2); RDW Standard Deviation 61.7 fL (35.1-46.3); White Blood Cell Count 4.53 K/mm3 (4.00-11.30)
[2024-03-14 06:32] LABS: Albumin, Blood 1.8 g/dL (3.4-5.0); Albumin/Globulin Ratio 0.6 (0.8-1.8); Bilirubin, Total 0.6 mg/dL (0.1-1.0); Bun/Creatinine Ratio 9.1 (12.0-20.0); Calcium, Blood 7.6 mg/dL (8.5-10.1); Creatinine, Blood 0.88 mg/dL (0.60-1.20); Globulin, Blood 3.1 g/dL (2.2-4.0); Potassium, Blood 3.7 mmol/L (3.5-5.5); Total Protein, Blood 4.9 g/dL (6.4-8.2)
[2024-03-14] MEDS ORDERED: Pantoprazole Sodium 40 MG Tab PO SCH (07:30)
[2024-03-14 08:15] VITALS: BP 106/75
[2024-03-14] MEDS ORDERED: Magnesium Oxide 400 MG Tab PO SCH (09:00)
[2024-03-14] MEDS ORDERED: Gabapentin 300 MG Cap PO SCH (09:00)
[2024-03-14] MEDS ORDERED: Calcium Citrate 315 MG/Vitamin D 250 IU Tab PO SCH (09:00)
[2024-03-14] MEDS ORDERED: Sodium Chloride 1 GM TAB PO SCH (09:00)
[2024-03-14] MEDS ORDERED: Spironolactone 50 MG Tab PO SCH (09:00)
[2024-03-14] MEDS ORDERED: Furosemide 10 MG/ML 4ML Vial IV SCH (09:00)
[2024-03-14] MEDS ORDERED: Enoxaparin 40 MG/0.4 ML SYR SC SCH (09:00)
[2024-03-14 14:48] VITALS: BP 117/78
--- NOTE | 2024-03-14 18:04 | NUR ---
SHIFT SUMMARY; PATIENT REMAINS ON BEDREST TODAY. HE IS RECEIVING LASIX IV. NO NOTICEABLE CHANGE IN BLE EDEMA. TESTICLE IS SWOLLEN RED AND PAINFULL TO TOUCH. HE IS NOT FEBRILE. VITAL SIGNS ARE STABLE. PATIENT RECEIVES OXYCODONE 10MG 4 PRN PAIN. \ HE CONTINUE TO RECEIVE IV ANTIBIOTICS. ARM BOARD IN PLACE TO KEEP IV INFUSING. SIGIFICANT OTHER AT BEDSIDE WHO RELATES PATIENT IS NON COMPLIANT AT HOME WITH KEEPING HIS FEET ELEVATED AND RESTRICTIG FLUIDS.
[2024-03-14 19:46] VITALS: BP 134/85
[2024-03-15 02:38] VITALS: BP 121/75
--- NOTE | 2024-03-15 03:52 | NUR ---
ENVIRONMENTAL TECHNICAL OFFICER SUMMARY VSS. FAMILY MEMBER AT BEDSIDE AT SHIFT COMMENCE, SHE VOICED PT WAS USED TO TAKING FENTANYL "EVERY 4 HRS" FOR HIS GROIN PAIN BUT THAT HE WASNT GETTING IT HERE. (I CHECKED THE MAR AND CONVEYED IT WAS A PRN, HE NEEDED TO ASK FOR IT, IT WAS NOT JUST SCHEDULED). PT THEN VOICED HE WOULD APPRECIATE RECEIVING IT HIS GROIN PAIN WAS QUITE INTENSE. HAS WATSON RECEIVING IT ABOUT EVERY 4 HRS THIS SHIFT PER HIS REQUEST. HAS BEEN RESTING QUIETLY AT INTERVALS. AZUL DRAINING YELLOW. ABLE TO REPOSITION SELF WITHOUT ASSIST. CALL LIGHT IN REACH, RAILS UP X 2 AND BED IN LOW POSITION FOR SAFETY. ANTIBIOTICS ADMINISTERED ORDERED - SEE MAR FOR DETAILS. WILL CONTINUE TO MONITOR
[2024-03-15 07:22] VITALS: BP 115/71
[2024-03-15] MEDS ORDERED: Furosemide 10 MG/ML 4ML Vial IV SCH (09:00)
[2024-03-15 09:50] LABS: Hematocrit 32.4 % (37.0-53.0); Hemoglobin 10.3 g/dL (13.5-17.5); Mean Corpuscular HGB 29.3 pg (26.0-34.0); Mean Corpuscular HGB Conc 31.8 g/dL (31.5-36.5); Mean Corpuscular Volume 92 fL (80-100); Mean Platelet Volume 8.9 fL (9.1-12.4); Platelet Count 144 K/mm3 (150-400); RDW Coefficient Variation 18.5 % (11.7-14.2); RDW Standard Deviation 62.8 fL (35.1-46.3); Red Blood Cell Count 3.51 M/mm3 (4.30-5.90); White Blood Cell Count 4.18 K/mm3 (4.00-11.30)
[2024-03-15 10:16] LABS: Albumin, Blood 2.2 g/dL (3.4-5.0); Albumin/Globulin Ratio 0.6 (0.8-1.8); Bilirubin, Total 0.6 mg/dL (0.1-1.0); Bun/Creatinine Ratio 8.8 (12.0-20.0); Calcium, Blood 8.1 mg/dL (8.5-10.1); Creatinine, Blood 0.79 mg/dL (0.60-1.20); Globulin, Blood 3.8 g/dL (2.2-4.0); Phosphorus, Blood 3.7 mg/dL (2.5-4.9); Potassium, Blood 3.4 mmol/L (3.5-5.5)
[2024-03-15 10:38] LABS: BAND PERCENT MAN 1 % (0-8); BASOPHILS ABSOLUTE MAN 0.04 K/mm3 (0.00-0.23); BASOPHILS PERCENT MAN 1 % (0-2); EOSINOPHILS ABSOLUTE MAN 0.12 K/mm3 (0.00-0.68); EOSINOPHILS PERCENT MAN 3 % (0-6); LYMPHOCYTES ABSOLUTE MAN 0.91 K/mm3 (0.84-5.20); LYMPHOCYTES PERCENT MAN 22 % (21-46); MONOCYTES ABSOLUTE MAN 0.41 K/mm3 (0.16-1.47); MONOCYTES PERCENT MAN 10 % (4-13); NEUTROPHILS ABSOLUTE MAN 2.67 K/mm3 (1.96-9.15); SEG NEUTROPHILS PERCENT MAN 63 % (41-73); TOTAL CELLS COUNTED 100
--- NOTE | 2024-03-15 10:54 | NUR ---
dr stewart rounded, deepti patients girlfriend rounded, fungal powder ordered, call light with in reach
[2024-03-15] MEDS ORDERED: Potassium Chloride 20 MEQ TabCR PO ONE (11:00)
[2024-03-15] MEDS ORDERED: Miconazole Nitrate 2% 85 GM PWD TOP SCH ×2 (11:38→14:00)
[2024-03-15 16:25] LABS: Vancomycin, Trough 25.4 ug/mL (5.0-10.0)
[2024-03-15 16:26] VITALS: BP 123/84
--- NOTE | 2024-03-15 16:44 | NUR ---
NO ACUTE CHANGES, COOPERATIVE TO CARE, INDEPEDANT IN ROOM, GIRLFRIEND LEAH AT BEDSIDE, MEDICATED FOR PAIN PER KRISTIAN BRAR OR ROSANNA HASSAN THIS PM TROUGH WAS 25.4, AZUL TO GRAVITY, CALL LIGHT WITH IN REACH, WILL RELAY TO PM RN
--- NOTE | 2024-03-16 04:27 | NUR ---
SHIFT SUMMARY: Pt is admitted for cellulitis and is a full code. Is alert and able to make needs known. ADLs have been independent. Pain has been treated with PRN pain medication. Folly intact and draining clear yellow urine.
[2024-03-16] MEDS ORDERED: Vancomycin HCL 1,500 MG in NS 250 ML IV SCH (05:00)
[2024-03-16 05:14] LABS: Hematocrit 29.2 % (37.0-53.0); Hemoglobin 9.1 g/dL (13.5-17.5); Mean Corpuscular HGB 28.8 pg (26.0-34.0); Mean Corpuscular HGB Conc 31.2 g/dL (31.5-36.5); Mean Corpuscular Volume 92 fL (80-100); Mean Platelet Volume 9.4 fL (9.1-12.4); Platelet Count 135 K/mm3 (150-400); RDW Coefficient Variation 18.4 % (11.7-14.2); RDW Standard Deviation 62.4 fL (35.1-46.3); Red Blood Cell Count 3.16 M/mm3 (4.30-5.90)
[2024-03-16 05:41] LABS: Vancomycin, Random 16.2 ug/mL
[2024-03-16 05:42] VITALS: BP 116/74
[2024-03-16 06:05] LABS: Albumin/Globulin Ratio 0.6 (0.8-1.8); BASOPHILS ABSOLUTE MAN 0.04 K/mm3 (0.00-0.23); BASOPHILS PERCENT MAN 1 % (0-2); Bilirubin, Total 0.5 mg/dL (0.1-1.0); Bun/Creatinine Ratio 7.2 (12.0-20.0); Calcium, Blood 8.5 mg/dL (8.5-10.1); Creatinine, Blood 0.83 mg/dL (0.60-1.20); EOSINOPHILS ABSOLUTE MAN 0.13 K/mm3 (0.00-0.68); EOSINOPHILS PERCENT MAN 3 % (0-6); Globulin, Blood 3.3 g/dL (2.2-4.0); LYMPHOCYTES PERCENT MAN 20 % (21-46); MONOCYTES PERCENT MAN 9 % (4-13); Magnesium, Blood 1.5 mg/dL (1.6-2.4); NEUTROPHILS ABSOLUTE MAN 3.01 K/mm3 (1.96-9.15); Phosphorus, Blood 3.3 mg/dL (2.5-4.9); Potassium, Blood 3.7 mmol/L (3.5-5.5); SEG NEUTROPHILS PERCENT MAN 67 % (41-73); TOTAL CELLS COUNTED 100; Total Protein, Blood 5.3 g/dL (6.4-8.2)
[2024-03-16 07:13] VITALS: BP 124/72
[2024-03-16] MEDS ORDERED: Mag Sulfate 1 GM/D5% 100ML 100 ML IV STA (08:06)
[2024-03-16] MEDS ORDERED: NS 250 ML IV PRN (08:30)
[2024-03-16] MEDS ORDERED: Furosemide 10 MG / ML 2ML Vial IV SCH (09:00)
[2024-03-16 15:21] VITALS: BP 120/81
--- NOTE | 2024-03-16 15:28 | NUR ---
PT ADMITTED TO ROOM 363 AT 1515 FROM ED STAND [place]IV[place] FROM [facility]. ORIENTED TO ROOM AND CALL LIGHT. ORIENTED TO SAFETY AND NOT GETTING UP UNATTENDED. CONTACT ISO FOR HX MRSA. R FOOT WRAPPED WITH BANDAGE AND WISAM WRAP, REDNESS BEGINING TO CLIMB UP LEG TO MID CALF. VSS, BLOOD SUGAR 283. WANTING TO EAT. GIVEN TURKEY SANDWICH.
[2024-03-16] MEDS ORDERED: Elastic Bandage/Support 1 EA MISC TOP SCH ×2 (16:00→16:45)
[2024-03-16] MEDS ORDERED: CeFAZolin Sodium 2,000 MG in NS 100 ML IV SCH (16:00)
--- NOTE | 2024-03-16 18:38 | NUR ---
SUMMARY- PT A/O X4. CONFUSED IN RELATION TO DETAILS OF HIS HISTORY. CELLULITIS TO BLE, UNNA BOOT CHANGED TODAY AFTER SHOWER. ONLY A FEW OPEN AREAS WITH MIN WEAPING, MOSTLY JUST REDNESS AND PEALING SKIN. MIN SWELLING BECAUSE UNNA BOOT IS PREVENTING SWELLING. IUSS MASTER ANALYST IN TOES 6 SECONDS. PT HAS LG DISTENDED ABD/ASCITES. HAD NAUSEA ONCE AND MEDICATES WITH ZOFRAN WITH RELEIF. DIURESING PT, HAS AZUL CATH. LG AMOUNTS OF CLEAR YELLOW. TOLERATING FOOD AND FLUIDS. GETS UP SBA, HAD HELP HIM WITH SHOWER. MICONAZOLE POWDER TO GROIN REDNESS. SCROTOM REMAINS SWOLLEN AND RED, PEALING. WILL REPORT TO NOC RN
[2024-03-16 19:45] VITALS: BP 137/90
[2024-03-17 02:38] VITALS: BP 112/79
[2024-03-17 07:28] VITALS: BP 139/84
[2024-03-17 07:37] LABS: BASOPHILS ABSOLUTE AUTO 0.04 K/mm3 (0.00-0.23); BASOPHILS PERCENT AUTO 1 % (0-2); EOSINOPHILS ABSOLUTE AUTO 0.14 K/mm3 (0.00-0.68); EOSINOPHILS PERCENT AUTO 3 % (0-6); Hemoglobin 9.9 g/dL (13.5-17.5); IMMATURE GRAN PERCENT AUTO 0 % (0-1); LYMPHOCYTES ABSOLUTE AUTO 0.89 K/mm3 (0.84-5.20); LYMPHOCYTES PERCENT AUTO 18 % (21-46); MONOCYTES ABSOLUTE AUTO 0.79 K/mm3 (0.16-1.47); MONOCYTES PERCENT AUTO 16 % (4-13); Mean Corpuscular HGB 29.5 pg (26.0-34.0); Mean Corpuscular HGB Conc 31.9 g/dL (31.5-36.5); Mean Corpuscular Volume 92 fL (80-100); Mean Platelet Volume 8.9 fL (9.1-12.4); NEUTROPHILS ABSOLUTE AUTO 3.04 K/mm3 (1.96-9.15); NEUTROPHILS PERCENT AUTO 62 % (41-73); Platelet Count 140 K/mm3 (150-400); RDW Coefficient Variation 18.4 % (11.7-14.2); RDW Standard Deviation 62.3 fL (35.1-46.3); Red Blood Cell Count 3.36 M/mm3 (4.30-5.90)
[2024-03-17 08:02] LABS: Bun/Creatinine Ratio 7.8 (12.0-20.0); Calcium, Blood 8.1 mg/dL (8.5-10.1); Creatinine, Blood 0.77 mg/dL (0.60-1.20); Magnesium, Blood 2.1 mg/dL (1.6-2.4); Phosphorus, Blood 3.3 mg/dL (2.5-4.9); Potassium, Blood 3.7 mmol/L (3.5-5.5)
[2024-03-17 16:14] VITALS: BP 125/83
--- NOTE | 2024-03-17 18:11 | NUR ---
SHIFT SUMMARY PT A&OX4-FORGETFUL AT TIMES, VSS, AMB W/ SBA-1P ASSIST, TOLERATING PO, VOIDING, AND C/O PAIN X1 THAT WAS MEDICATED PER THE EMAR. BLE DRESSING REMAIN C/D/I. NO ACUTE CHANGES THIS SHIFT. CALL LIGHT WITHIN REACH AND PT ABLE TO MAKE NEEDS KNOWN.
[2024-03-17 20:10] VITALS: BP 138/92
[2024-03-18] MEDS ORDERED: NS 100 ML IV ONE ×2 (00:05→00:06)
[2024-03-18 04:33] VITALS: BP 107/66
[2024-03-18 04:52] LABS: Hematocrit 27.2 % (37.0-53.0); Hemoglobin 8.7 g/dL (13.5-17.5); Mean Corpuscular HGB 28.9 pg (26.0-34.0); Mean Corpuscular Volume 90 fL (80-100); Mean Platelet Volume 8.7 fL (9.1-12.4); Platelet Count 138 K/mm3 (150-400); RDW Coefficient Variation 18.3 % (11.7-14.2); RDW Standard Deviation 61.2 fL (35.1-46.3); Red Blood Cell Count 3.01 M/mm3 (4.30-5.90); White Blood Cell Count 4.85 K/mm3 (4.00-11.30)
[2024-03-18 05:25] LABS: Albumin, Blood 1.9 g/dL (3.4-5.0); Albumin/Globulin Ratio 0.6 (0.8-1.8); Bilirubin, Total 0.5 mg/dL (0.1-1.0); Bun/Creatinine Ratio 9.8 (12.0-20.0); Calcium, Blood 7.9 mg/dL (8.5-10.1); Creatinine, Blood 0.71 mg/dL (0.60-1.20); Globulin, Blood 3.2 g/dL (2.2-4.0); Potassium, Blood 3.4 mmol/L (3.5-5.5); Total Protein, Blood 5.1 g/dL (6.4-8.2)
[2024-03-18 06:11] LABS: BASOPHILS PERCENT MAN 0 % (0-2); EOSINOPHILS ABSOLUTE MAN 0.19 K/mm3 (0.00-0.68); EOSINOPHILS PERCENT MAN 4 % (0-6); LYMPHOCYTES ABSOLUTE MAN 0.92 K/mm3 (0.84-5.20); LYMPHOCYTES PERCENT MAN 19 % (21-46); MONOCYTES ABSOLUTE MAN 0.67 K/mm3 (0.16-1.47); MONOCYTES PERCENT MAN 14 % (4-13); NEUTROPHILS ABSOLUTE MAN 3.05 K/mm3 (1.96-9.15); SEG NEUTROPHILS PERCENT MAN 63 % (41-73); TOTAL CELLS COUNTED 100
[2024-03-18 07:33] VITALS: BP 115/73
[2024-03-18] MEDS ORDERED: Potassium Chloride 20 MEQ TabCR PO ONE (08:00)
[2024-03-18] MEDS ORDERED: Furosemide 10 MG/ML 4ML Vial IV SCH (09:00)
[2024-03-18 16:12] VITALS: BP 144/71
--- NOTE | 2024-03-18 17:54 | NUR ---
SHIFT SUMMARY NO ACUTE CHANGES THIS SHIFT. BLE DRESSING REMAINS C/D/I. CALL LIGHT WITHIN REACH AND PT ABLE TO MAKE NEEDS KNOWN.
[2024-03-18 21:26] VITALS: BP 122/80
[2024-03-19 05:03] VITALS: BP 117/77
[2024-03-19 05:31] LABS: BASOPHILS ABSOLUTE AUTO 0.06 K/mm3 (0.00-0.23); BASOPHILS PERCENT AUTO 1 % (0-2); EOSINOPHILS ABSOLUTE AUTO 0.32 K/mm3 (0.00-0.68); EOSINOPHILS PERCENT AUTO 6 % (0-6); Hematocrit 27.6 % (37.0-53.0); Hemoglobin 8.7 g/dL (13.5-17.5); IMMATURE GRAN ABSOLUTE AUTO 0.02 K/mm3 (0.00-0.10); IMMATURE GRAN PERCENT AUTO 0 % (0-1); LYMPHOCYTES ABSOLUTE AUTO 1.05 K/mm3 (0.84-5.20); LYMPHOCYTES PERCENT AUTO 19 % (21-46); MONOCYTES ABSOLUTE AUTO 0.87 K/mm3 (0.16-1.47); MONOCYTES PERCENT AUTO 16 % (4-13); Mean Corpuscular HGB Conc 31.5 g/dL (31.5-36.5); Mean Corpuscular Volume 92 fL (80-100); NEUTROPHILS ABSOLUTE AUTO 3.14 K/mm3 (1.96-9.15); NEUTROPHILS PERCENT AUTO 58 % (41-73); Platelet Count 148 K/mm3 (150-400); RDW Coefficient Variation 18.2 % (11.7-14.2); RDW Standard Deviation 61.1 fL (35.1-46.3); White Blood Cell Count 5.46 K/mm3 (4.00-11.30)
[2024-03-19 06:05] LABS: Creatinine, Blood 0.78 mg/dL (0.60-1.20); Potassium, Blood 3.9 mmol/L (3.5-5.5)
[2024-03-19 07:37] VITALS: BP 108/69
[2024-03-19] MEDS ORDERED: Furosemide 10 MG / ML 2ML Vial IV SCH (09:00)
== END 2024-03-19 12:49 | disposition home or self-care (01) | DRG 728 ==
LOC: ER 15:47 → MEDS 15:48 → ER 21:57 → MEDS 21:57 → ENPENDDIS 03-19 10:15 → MEDS 03-19 12:49
PROVIDERS: Family Medicine; Internal Medicine; Student in an Organized Health Care Education/Training Program; ADMIT Internal Medicine
DX: N49.2 Inflammatory disorders of scrotum (principal); R18.0 Malignant ascites; C18.9 Malignant neoplasm of colon, unspecified; C78.7 Secondary malignant neoplasm of liver and intrahepatic bile duct; C77.9 Secondary and unspecified malignant neoplasm of lymph node, unspecified; C78.89 Secondary malignant neoplasm of other digestive organs; R33.9 Retention of urine, unspecified; K44.9 Diaphragmatic hernia without obstruction or gangrene; I10 Essential (primary) hypertension; K21.9 Gastro-esophageal reflux disease without esophagitis; E78.5 Hyperlipidemia, unspecified; E87.70 Fluid overload, unspecified; I25.10 Atherosclerotic heart disease of native coronary artery without angina pectoris; K74.60 Unspecified cirrhosis of liver; Z96.652 Presence of left artificial knee joint; I25.2 Old myocardial infarction; Z95.5 Presence of coronary angioplasty implant and graft; Z88.8 Allergy status to other drugs, medicaments and biological substances; Z79.899 Other long term (current) drug therapy; Z79.891 Long term (current) use of opiate analgesic; Z79.01 Long term (current) use of anticoagulants; Z98.890 Other specified postprocedural states
CPT/HCPCS: 36415; 74177; 80048; 80053; 80202; 81001; 83605; 83735; 84100; 85025; 85651; 86140; 87086; 93005; 93010; 96365-59; 96366; 96367; 96372; 96375; 96376; 99285-25; A9270; G0378; J0690; J0696; J1170; J1650; J1940; J2405; J2543; J3010; J3370; J3475; J7040; J7050; Q9967

== ENCOUNTER 2024-04-07 01:05 | Inpatient (IN) | payer BC, OTHER ==
[~2024-04-07] VITALS: Ht 182.9 cm; Wt 82.0 kg
[2024-04-07 01:47] LABS: BASOPHILS ABSOLUTE AUTO 0.04 K/mm3 (0.00-0.23); BASOPHILS PERCENT AUTO 0 % (0-2); EOSINOPHILS ABSOLUTE AUTO 0.08 K/mm3 (0.00-0.68); EOSINOPHILS PERCENT AUTO 1 % (0-6); Hemoglobin 11.2 g/dL (13.5-17.5); IMMATURE GRAN ABSOLUTE AUTO 0.07 K/mm3 (0.00-0.10); IMMATURE GRAN PERCENT AUTO 1 % (0-1); LYMPHOCYTES ABSOLUTE AUTO 1.03 K/mm3 (0.84-5.20); LYMPHOCYTES PERCENT AUTO 11 % (21-46); MONOCYTES ABSOLUTE AUTO 1.23 K/mm3 (0.16-1.47); MONOCYTES PERCENT AUTO 13 % (4-13); Mean Corpuscular HGB 28.4 pg (26.0-34.0); Mean Corpuscular Volume 89 fL (80-100); Mean Platelet Volume 10.4 fL (9.1-12.4); NEUTROPHILS ABSOLUTE AUTO 6.81 K/mm3 (1.96-9.15); NEUTROPHILS PERCENT AUTO 74 % (41-73); Platelet Count 162 K/mm3 (150-400); RDW Coefficient Variation 17.4 % (11.7-14.2); RDW Standard Deviation 55.1 fL (35.1-46.3); Red Blood Cell Count 3.95 M/mm3 (4.30-5.90); White Blood Cell Count 9.26 K/mm3 (4.00-11.30)
[2024-04-07 01:59] LABS: Albumin, Blood 3.5 g/dL (3.4-5.0); Albumin/Globulin Ratio 0.8 (0.8-1.8); Bilirubin, Total 1.3 mg/dL (0.1-1.0); Calcium, Blood 8.8 mg/dL (8.5-10.1); Creatinine, Blood 1.08 mg/dL (0.60-1.20); Globulin, Blood 4.4 g/dL (2.2-4.0); Potassium, Blood 4.6 mmol/L (3.5-5.5); Total Protein, Blood 7.9 g/dL (6.4-8.2)
[2024-04-07 02:44] LABS: Source, Urine Voided
[2024-04-07 02:48] LABS: Bilirubin, Urine Neg (Neg); Blood, Urine Neg (Neg); Glucose Qualitative, Urine Neg (Neg); Ketones, Urine Neg (Neg); Leukocyte Esterase, Urine Neg (Neg); Nitrite, Urine Neg (Neg); Protein, Urine 1+ (Neg); Urobilinogen, Urine NORM (Normal)
[2024-04-07 02:55] LABS: Appearance, Urine Clear (Clear); Color, Urine Yellow (P-Yellow)
[2024-04-07] MEDS ORDERED: Ondansetron HCl 2 MG / ML 2ML Vial IV ONE (03:15)
[2024-04-07] MEDS ORDERED: Morphine Sulfate 4 MG/1 ML Injection IV ONE (03:15)
[2024-04-07] MEDS ORDERED: NS 1,000 ML IV SCH (03:55)
[2024-04-07] MEDS ORDERED: HYDROmorphone HCl/Pf 1MG SYR IV ONE (05:45)
[2024-04-07] MEDS ORDERED: Polyethylene Glycol 3350 17 gm PO PRN (06:15)
[2024-04-07] MEDS ORDERED: Ondansetron HCl 2 MG / ML 2ML Vial IV PRN (06:20)
[2024-04-07] MEDS ORDERED: Metoclopramide HCl 10 MG Tab PO PRN (06:20)
[2024-04-07] MEDS ORDERED: Naloxone HCl 0.4MG / ML 1ML Vial IV PRN (06:20)
[2024-04-07] MEDS ORDERED: Acetaminophen 650 MG Supp PR PRN (06:20)
[2024-04-07] MEDS ORDERED: Morphine Sulfate 4 MG/1 ML Injection IV PRN (06:20)
[2024-04-07] MEDS ORDERED: OxyCODONE HCL 5 MG TAB PO PRN (06:20)
[2024-04-07] MEDS ORDERED: Acetaminophen 325 MG TABLET PO PRN (06:25)
[2024-04-07] MEDS ORDERED: Lactated Ringer's 1,000 ML IV SCH (07:00)
[2024-04-07 08:14] VITALS: BP 135/86
[2024-04-07] MEDS ORDERED: Furosemide 40 MG Tab PO SCH (09:00)
[2024-04-07] MEDS ORDERED: Spironolactone 50 MG Tab PO SCH (09:00)
[2024-04-07] MEDS ORDERED: Sodium Chloride 1 GM TAB PO SCH (09:00)
[2024-04-07 11:48] LABS: Adenovirus F 40/41 Not Detected (NOT DETECT); Astrovirus Not Detected (NOT DETECT); Campylobacter Sp Not Detected (NOT DETECT); Cryptosporidium Not Detected (NOT DETECT); Cyclospora Cayetanensis Not Detected (NOT DETECT); E. Coli O157 Not Detected (NOT DETECT); Entamoeba Histolytica Not Detected (NOT DETECT); Enteroaggregative E. coli-EAEC Not Detected (NOT DETECT); Enteropathogenic E. coli-EPEC Detected (NOT DETECT); Enterotoxigenic E. coli-ETEC Not Detected (NOT DETECT); Giardia Lamblia Not Detected (NOT DETECT); Norovirus GI/GII Not Detected (NOT DETECT); Plesiomonas Shigelloides Not Detected (NOT DETECT); Rotavirus A Not Detected (NOT DETECT); Salmonella Sp Not Detected (NOT DETECT); Sapovirus Not Detected (NOT DETECT); Shiga Toxin-prod E. coli-STEC Not Detected (NOT DETECT); Shigella/Enteroin E. coli-EIEC Not Detected (NOT DETECT); Vibrio Cholerae Not Detected (NOT DETECT); Vibrio Sp Not Detected (NOT DETECT); Yersinia Enterocolitica Not Detected (NOT DETECT)
--- NOTE | 2024-04-07 11:49 | NUR ---
NOTE: PATIENT LEFT THE ROOM VIA GURNEY AT [facility] TIME TO MRI.
[2024-04-07] MEDS ORDERED: Azithromycin 500 MG in NS 250 ML IV SCH (15:00)
[2024-04-07] MEDS ORDERED: Vancomycin HCl 125 MG Cap PO SCH (15:00)
[2024-04-07 16:12] LABS: International Normalized Ratio 1.08; Prothrombin Time Results 11.5 Sec (9.7-11.5)
[2024-04-07 16:22] VITALS: BP 120/80
[2024-04-07] MEDS ORDERED: Pantoprazole Sodium 40 MG Tab PO SCH (16:30)
--- NOTE | 2024-04-07 16:38 | NUR ---
ADMISSION/SHIFT NOTE: PATIENT ARRIVES TO ROOM AT 0805 VIA GURNEY FROM ER c DX'S OF TOXIC METABOLIC ENCEPALOPATHY. PATIENT ORIENTATTED TO ROOM AND CALL SYSTEM. ADMISSION, MEDRIC AND SKIN ASSESSMENT c 2 RN'S VERFIED COMPLETED. PATIENT A/O TO SELF AND PLACED, CONFUSED TO DATES AND CURRENT SITUATION, IMPULSIVE AT TIMES. PATIENT GETTING OUT OF BED NUMEROUS TIMES WITHOUT USING CALL LIGHTS, SIG OTHER AT BEDSIDE. PATIENT REPORTS WOULD LIKE TO GO HOME AND STOP ALL THE TREATMENT. PALLIATIVE CARE NURSE, AYDEE NOTIFIED c PATIENT REQUEST. AYDEE CAME IN ROOM AND SPOKE TO PATIENT AND SIG OTHER c PLAN OF CARE AND NOTIFIED DR. YOU. PATIENT STOOL SPECIMEN SENT OUT TO LAB THIS AM FOR GI PANEL, IT CAME BACK c RESULT POSITIVE FOR CDIFF. PATIENT PLACED ON CONTACT ENTERIC ISOLATION FOR CDIFF POSITIVE. DR. YOU ORDERED SPINAL TAP. DR. CLAYTON SPOKE TO PATIENT REGARDING RISK/BENEFITS OF THE PROCEDURE. PATIENT VERBALIZED UNDERSTANDING AND AGREED c THE PROCEDURE. DR. CLAYTON DID THE SPINAL TAP PROCEDURE TO LOWER MID SPINE AT BEDSIDE, PATIENT TOLERATED WELL WITHOUT ANY DISCOMFORT. DR. CLAYTON ENCOURAGE PATIENT TO STAY LAYING ON HIS SIDE LONG HE CAN TOLERATED TO PREVENT GETTING A HERNANDEZ. PATIENT ONLY LASTS FOR ABOUT 20 MNS AND DECIDED TO WALK AROUND IN ROOM. POST-OP VITALS TAKEN. PATIENT WILL BE TRANSFERRING TO ROOM 346, TELEPHONE REPORTS GIVEN TO VANESSA CARDENAS REGARDING PATIENT CONDITION. PATIENT LEFT THE ROOM AT 1715 VIA BED.
[2024-04-07 17:03] LABS: WBC Count, CSF 1 /mm3 (0-5)
[2024-04-07 17:04] LABS: Appearance, CSF Clear (Clear); Color, CSF No Color (No Color); RBC Count, CSF 4 /mm3 (0-0)
--- NOTE | 2024-04-07 17:25 | NUR ---
Pt up at bedside aggitated wanting to take IV out. Reviewed his symptoms he has an increased headache. some nausea and genralized pain. Ward difficulty tracking conversation. want to know what the diagnostics say and what their options are. Updated pysician on families needs. updated physician on medications. Aldactone may be contraindicated for this pt will update pharmacy. will discuss code status with .
--- NOTE | 2024-04-07 18:06 | NUR ---
TRANSFER/SHIFT SUMMARY REPORT RECEIVED FROM VANESSA MOFFETT. PT ORIENTED TO THE ROOM. BA ON. PT IS IMPULSIVE. CDIFF PRECAUTIONS. GF AT THE BS. PT AOX2, SELF AND PLACE. INCONT/CONT. USES THE URINAL WITH ASSIST. CALL LIGHT WITHIN REACH, BED LOCKED AND IN THE LOWEST POSITION. WILL REPORT TO ONCOMING NURSE.
[2024-04-07 19:56] VITALS: BP 132/85
[2024-04-07] MEDS ORDERED: Calcium Carbonate 500 MG Tab Chew PO PRN (21:15)
[2024-04-07] MEDS ORDERED: NS 250 ML IV PRN (23:25)
[2024-04-08 03:32] VITALS: BP 110/85
--- NOTE | 2024-04-08 05:06 | NUR ---
SHIFT SUMMARY PT ALERT TO SELF. PT IMPULISVE AND HAS SOME DIFFICULTY FOLLOWING COMMANDS. PT GIVEN TUMS AND INSTRUCTED TO CHEW TABLETS SEVERAL TIMES, HOWEVER, PT STILL ATTEMPTED TO SWALLOW TABLETS. PT WILL VERBALIZE PAIN BUT ONLY IF ASKED OTHERWISE, PT CAN BE HEARD GROANING IN ROOM AT TIMES. PT RESTLESS AND UP OFTEN TO USE URINAL T/O NIGHT. PT ALSO BACK AND FORTH FROM CHAIR TO BED. PT MEDICATED FOR PAIN. SEE EMAR. PT WAS FINNALY ABLE TO REST IN THE CHAIR AT AROUND 0330 AND APPREARED TO SLEEP. PT AWAKE AT 0445 TO USE BATHROOM AND WAS DIFFICULT TO REDIRECT BACK TO BED. BED AND CHAIR ALARM USED T/O NIGHT. BED IN LOWEST POSITION AND CALL LIGHT IN REACH.
[2024-04-08 05:25] LABS: BASOPHILS ABSOLUTE AUTO 0.03 K/mm3 (0.00-0.23); BASOPHILS PERCENT AUTO 1 % (0-2); EOSINOPHILS ABSOLUTE AUTO 0.22 K/mm3 (0.00-0.68); EOSINOPHILS PERCENT AUTO 5 % (0-6); Hematocrit 30.6 % (37.0-53.0); Hemoglobin 9.9 g/dL (13.5-17.5); IMMATURE GRAN ABSOLUTE AUTO 0.01 K/mm3 (0.00-0.10); IMMATURE GRAN PERCENT AUTO 0 % (0-1); LYMPHOCYTES ABSOLUTE AUTO 1.21 K/mm3 (0.84-5.20); LYMPHOCYTES PERCENT AUTO 25 % (21-46); MONOCYTES ABSOLUTE AUTO 0.61 K/mm3 (0.16-1.47); MONOCYTES PERCENT AUTO 13 % (4-13); Mean Corpuscular HGB 28.2 pg (26.0-34.0); Mean Corpuscular HGB Conc 32.4 g/dL (31.5-36.5); Mean Corpuscular Volume 87 fL (80-100); Mean Platelet Volume 9.3 fL (9.1-12.4); NEUTROPHILS ABSOLUTE AUTO 2.75 K/mm3 (1.96-9.15); NEUTROPHILS PERCENT AUTO 57 % (41-73); Platelet Count 130 K/mm3 (150-400); RDW Coefficient Variation 17.3 % (11.7-14.2); RDW Standard Deviation 53.8 fL (35.1-46.3); Red Blood Cell Count 3.51 M/mm3 (4.30-5.90); White Blood Cell Count 4.83 K/mm3 (4.00-11.30)
[2024-04-08 05:54] LABS: Albumin, Blood 3.2 g/dL (3.4-5.0); Albumin/Globulin Ratio 0.8 (0.8-1.8); Bun/Creatinine Ratio 11.7 (12.0-20.0); Calcium, Blood 8.5 mg/dL (8.5-10.1); Creatinine, Blood 0.94 mg/dL (0.60-1.20); Globulin, Blood 4.1 g/dL (2.2-4.0); Magnesium, Blood 2.1 mg/dL (1.6-2.4); Total Protein, Blood 7.3 g/dL (6.4-8.2)
[2024-04-08 07:20] VITALS: BP 135/88
[2024-04-08] MEDS ORDERED: Enoxaparin 40 MG/0.4 ML SYR SC SCH (09:00)
--- NOTE | 2024-04-08 12:21 | NUR ---
PT HAS 50 MCG FENTANYL PATCH OF FROM HOME. PT S/O STATES PLACED WEDNESDAY. NO ORDER LISTED. DISCUSSED WITH DR LAWSON. HE TO ADDRESS. ALSO PT TAKES GABAPENTIN 300 MG TID, ROBAXIN [address] TO ADDRESS ORDERS TO CLARIFY.
[2024-04-08] MEDS ORDERED: FentaNYL 50 MCG Patch TOP SCH (13:05)
[2024-04-08] MEDS ORDERED: HYDROmorphone HCl/Pf 1MG SYR IV PRN (13:05)
[2024-04-08 15:37] VITALS: BP 136/94
--- NOTE | 2024-04-08 18:29 | NUR ---
PT QUITE PLEASANT TODAY. MOSTLY NOT DIRECTABLE AND QUITE CONFUSED. FAMILY IN ROOM SOME OF TODAY. THEY ARE PLEASANT AND HELPFUL. CHANGED THE MORPHINE FOR DILAUDID AND THIS DID HELP PAIN. PT IS UP AND AMBULATORY SBA TODAY. USING BED ALARM WHILE FAMILY OUT OF ROOM. NO NEW CONCERNS NOTED. BED IN LOW POSITION, CALL LITE IN REACH, BED ALARM ON FOR SAFETY
--- NOTE | 2024-04-08 19:18 | NUR ---
S/O IN ROOM TODAY. STATES DR CARLOS ORDERED HYDROXYZ HCL 25 MG FOR ANXIETY AT HOME. HAS NOT PICKED UP OR USED. OFFERED MIGHT BE HELPFUL/
[2024-04-08 19:49] VITALS: BP 153/99
[2024-04-08] MEDS ORDERED: HyDROXyzine HCl 25 MG Tab PO ONE (21:35)
[2024-04-08] MEDS ORDERED: Haloperidol Lactate Inj. 5 MG/ML Injection IV ONE ×2 (22:35→23:15)
[2024-04-09 04:09] VITALS: BP 147/87
[2024-04-09] MEDS ORDERED: HYDROmorphone HCl/Pf 1MG SYR IV ONE (06:00)
[2024-04-09 07:11] LABS: BASOPHILS ABSOLUTE AUTO 0.04 K/mm3 (0.00-0.23); BASOPHILS PERCENT AUTO 1 % (0-2); EOSINOPHILS ABSOLUTE AUTO 0.14 K/mm3 (0.00-0.68); EOSINOPHILS PERCENT AUTO 3 % (0-6); Hematocrit 30.8 % (37.0-53.0); Mean Corpuscular HGB 28.2 pg (26.0-34.0); Mean Corpuscular HGB Conc 32.5 g/dL (31.5-36.5); Mean Corpuscular Volume 87 fL (80-100); Mean Platelet Volume 9.2 fL (9.1-12.4); Platelet Count 163 K/mm3 (150-400); RDW Coefficient Variation 17.2 % (11.7-14.2); RDW Standard Deviation 53.3 fL (35.1-46.3); Red Blood Cell Count 3.55 M/mm3 (4.30-5.90); White Blood Cell Count 4.21 K/mm3 (4.00-11.30)
[2024-04-09 07:15] LABS: IMMATURE GRAN ABSOLUTE AUTO 0.01 K/mm3 (0.00-0.10); IMMATURE GRAN PERCENT AUTO 0 % (0-1); LYMPHOCYTES ABSOLUTE AUTO 1.27 K/mm3 (0.84-5.20); LYMPHOCYTES PERCENT AUTO 30 % (21-46); MONOCYTES ABSOLUTE AUTO 0.66 K/mm3 (0.16-1.47); MONOCYTES PERCENT AUTO 16 % (4-13); NEUTROPHILS ABSOLUTE AUTO 2.09 K/mm3 (1.96-9.15); NEUTROPHILS PERCENT AUTO 50 % (41-73)
--- NOTE | 2024-04-09 07:23 | NUR ---
SHIFT SUMMARY PT ALERT TO SELF. PT MORE RESTLESS AND IRRITABLE AT START OF SHIFT. NOT ABLE TO REDIRECT PT. PT WAS PACING IN ROOM AND HAVING DIFFICULTY FORMING A COMPLETE SENTECE OR FINDING WORDS. PT APPREATED TO BE HALUCINATING BY STATING HE SAW A MOUSE ON WINDOWSEAL AND WATER ON THE FLOOR. THIS NURSE STAYED IN ROOM FOR ABOUT AN HOUR DRUIG THIS TIME. AT ABOUT 2015 THIS NURSE CALLED HIS SIGNIFICANT OTHER AND SHE WAS ABLE TO COME SIT WITH PT UNTIL ABOUT 0000. PT CONTINUED TO PACE AND AT TIMES YELL AND CURSE. SO STATED PT HAS NOT SLEPT IN 5 DAYS. SO OTHER ALSO VOICED CONCERN THAT PT HAS NOT SLEPT AND REQUESTED THAT SOMETHING BE GIVEN TO HELP HIM REST. ORDER GIVEN FOR ATARAX. AT AROUND 2300 PT WAS BECOMING UNSTEADY AND EYES WERE CLOSING FOR BREIF MOMENTS. PT ASSISTED TO BED AND ISMAEL VEST PLACED. PT BECAME MORE IRRITABLE AND CONTINUED TO ATTEMPT OUT OF BED. HALDOL GIVEN PER ORDER. PT ALSO MEDICATED T/O NIGHT FOR PAIN BUT PT HAD DIFFICULTY EXPRESSING PAIN. HOWEVER, PT COULD BE HEARED MOANING, WAS RESTLESS AND SWEARING. PT FINALLY ABLE TO SLEEP FOR A LITTLE OVER AN HOUR AROUND 0430. BED ALARM ON. BED IN LOWEST POSITION AND CALL LIGHT IN REACH.
[2024-04-09 07:29] LABS: Albumin, Blood 3.4 g/dL (3.4-5.0); Albumin/Globulin Ratio 0.8 (0.8-1.8); Bilirubin, Total 1.1 mg/dL (0.1-1.0); Bun/Creatinine Ratio 10.4 (12.0-20.0); Calcium, Blood 9.1 mg/dL (8.5-10.1); Creatinine, Blood 0.96 mg/dL (0.60-1.20); Globulin, Blood 4.2 g/dL (2.2-4.0); Potassium, Blood 3.7 mmol/L (3.5-5.5); Total Protein, Blood 7.6 g/dL (6.4-8.2)
[2024-04-09 07:39] LABS: BASOPHILS PERCENT MAN 0 % (0-2); EOSINOPHILS ABSOLUTE MAN 0.25 K/mm3 (0.00-0.68); EOSINOPHILS PERCENT MAN 6 % (0-6); LYMPHOCYTES ABSOLUTE MAN 1.09 K/mm3 (0.84-5.20); LYMPHOCYTES PERCENT MAN 26 % (21-46); MONOCYTES ABSOLUTE MAN 0.42 K/mm3 (0.16-1.47); MONOCYTES PERCENT MAN 10 % (4-13); MYELOCYTE ABSOLUTE MAN 0.04 K/mm3 (0.00-0.00); MYELOCYTE PERCENT MAN 1 % (0-0); NEUTROPHILS ABSOLUTE MAN 2.39 K/mm3 (1.96-9.15); SEG NEUTROPHILS PERCENT MAN 57 % (41-73); TOTAL CELLS COUNTED 100
--- NOTE | 2024-04-09 08:00 | NUR ---
0800 PT RECEIVED 2MG DILAUDID AT 5AM. 1MG DILAUDID AT 7AM. OPAL CALLING OUT IN PAIN. OKAYED GIVE ANOTHER 1 MG NOW. HOLD OXY FOR AN HOUR OR MORE. HE WILL CHECK AND SEE IF TORADOL OKAY FOR PT.
[2024-04-09] MEDS ORDERED: Ketorolac Tromethamine 15mg Vial IV ONE (08:10)
[2024-04-09 08:20] VITALS: BP 148/93
[2024-04-09] MEDS ORDERED: HYDROmorphone HCl/Pf 1MG SYR IV PRN (09:21)
[2024-04-09] MEDS ORDERED: QUEtiapine Fumarate 25 MG Tab PO ONE (10:00)
[2024-04-09] MEDS ORDERED: QUEtiapine Fumarate 25 MG Tab PO PRN (10:00)
--- NOTE | 2024-04-09 15:55 | NUR ---
SPOKE TO DR LAWSON. PT STATES USES VOLTEREN CREAM. DR RAMOS Q8HR PRN FOR PAIN. CALLED [facility] TO ORDER, WE DO NOT CARRY. WILL HAVE FAMILY BRING IN AND USE.
--- NOTE | 2024-04-09 17:22 | NUR ---
PT WAS CALLING FOR MORE PAIN MEDICATIONS THIS DAY. DR UPPED DILAUDID DOSE THIS AM. HE CALMED MUCH AFTER HIGHER DOSE THIS AM. FAMILY STATES HE NOT SLEPT FOR MORE THAN MOMENTS SITTING UP FOR 6 DAYS. ALSO GAVE TORADOL AND SEROQUEL AND OCYCODONE THIS AM. ANOTHER DOSE OF DILAUDID AND SEROQUEL THIS AFTERNOON. PT FINALLY ABLE TO SLEEP SINCE ABOUT 3PM. STILL RESTING PEACEFULLY, EYES CLOSED, SNORING LIGHTLY AT THIS TIME. PT HAS SOME MEDICATIONS DUE AT 18:00 AND WILL LET HIM REST UNTIL THAT TIME. WILL ALSO CHECK VITAL SIGNS AT THAT TIME. FAMILY IN AND OBSERVED HIM RESTING. NO OTHER CONCERNS NOTED AT THIS TIME. BED IN LOW POSITION, CALL LITE IN REACH. SITTER IN ROOM.
[2024-04-09 18:18] VITALS: BP 124/95
--- NOTE | 2024-04-09 18:37 | NUR ---
WE AWOKE PT FOR VITALS. VSS. HE TOO SLEEPY TO TAKE PO MEDS. PLACED BACK TO LYING BACK IN BED. DID AWAKEN EASILY TO STERNAL RUB. CHANGED PT ATTENDS, NOW CLEAN AND DRY. CONTINUES ON SITTER.
[2024-04-09 20:41] VITALS: BP 143/81
[2024-04-10 04:03] VITALS: BP 118/70
[2024-04-10 05:50] LABS: BASOPHILS ABSOLUTE AUTO 0.02 K/mm3 (0.00-0.23); BASOPHILS PERCENT AUTO 1 % (0-2); EOSINOPHILS PERCENT AUTO 3 % (0-6); Hematocrit 29.1 % (37.0-53.0); Hemoglobin 9.5 g/dL (13.5-17.5); IMMATURE GRAN ABSOLUTE AUTO 0.01 K/mm3 (0.00-0.10); IMMATURE GRAN PERCENT AUTO 0 % (0-1); LYMPHOCYTES ABSOLUTE AUTO 0.67 K/mm3 (0.84-5.20); LYMPHOCYTES PERCENT AUTO 18 % (21-46); MONOCYTES ABSOLUTE AUTO 0.52 K/mm3 (0.16-1.47); MONOCYTES PERCENT AUTO 14 % (4-13); Mean Corpuscular HGB 28.3 pg (26.0-34.0); Mean Corpuscular HGB Conc 32.6 g/dL (31.5-36.5); Mean Corpuscular Volume 87 fL (80-100); Mean Platelet Volume 9.2 fL (9.1-12.4); NEUTROPHILS ABSOLUTE AUTO 2.46 K/mm3 (1.96-9.15); NEUTROPHILS PERCENT AUTO 65 % (41-73); Platelet Count 109 K/mm3 (150-400); RDW Standard Deviation 52.5 fL (35.1-46.3); Red Blood Cell Count 3.36 M/mm3 (4.30-5.90); White Blood Cell Count 3.78 K/mm3 (4.00-11.30)
--- NOTE | 2024-04-10 05:53 | NUR ---
Patient alert and oriented only to self this shift. VSS, tolerating room air appropriately; patient has been impulsive, minimally redirectable when awake, PRN pain and agitation medications given frequently per patient needs. Patient incontinent of bladder in bed at times overnight. PRN seroquel effective in providing sleep for patient overnight. [place] vest restraint in place, equipment replaced after patient destroyed previous vest; order renewed via hospitalists overnight.
[2024-04-10 06:19] LABS: Albumin, Blood 2.9 g/dL (3.4-5.0); Albumin/Globulin Ratio 0.8 (0.8-1.8); Calcium, Blood 8.5 mg/dL (8.5-10.1); Creatinine, Blood 0.89 mg/dL (0.60-1.20); Globulin, Blood 3.8 g/dL (2.2-4.0); Potassium, Blood 3.8 mmol/L (3.5-5.5); Total Protein, Blood 6.7 g/dL (6.4-8.2)
[2024-04-10 07:37] VITALS: BP 123/82
[2024-04-10 15:34] VITALS: BP 126/85
--- NOTE | 2024-04-10 18:13 | NUR ---
PATIENT AWAKE AND IMPULSIVE THROUGHOUT THE SHIFT. MOST REST WAS 20 MINUTES. TOLERATING REGULAR DIET. SEROQUEL GIVEN Q4 HOURS, RESTRAINTS D/C'D AT 1200 AND PATIENT WAS REDIRECTABLE AT THAT TIME. THIS EVENING PATIENT REPEATEDLY ATTEMPTED OUT OF BED AND WAS NOT REDIRECTABLE. ISMAEL VEST BACK ON FOR PATIENT SAFETY AND 1:1 SITTER AT BEDSIDE. ALTERNATING OXYCODONE AND IV DILAUDID TO CONTROL ABDOMINAL PAIN. S/O LEAH AT BEDSIDE THIS EVENING AND WOULD LIKE A CALL FOR THE DOCTOR IN THE MORNING.
[2024-04-10] MEDS ORDERED: LORazepam 2 MG/ML 1ML Injection IV PRN (19:15)
[2024-04-10 19:18] VITALS: BP 136/83
--- NOTE | 2024-04-11 01:33 | NUR ---
CALLED PHARMACY I CALLED PHARMACY REGARDING PO VANCO. THIS PATIENT HAS HAD A DIFFICULT TIME THIS SHIFT WITH PAIN AND ANXIETY, AND HE HAS FINALLY FALLEN ASLEEP. PHARMACY INFORMS ME THAT IT IS ACCEPTABLE TO WAIT TO ADMINISTER THE VANCO UNTIL LATER, UP TO AN HOUR AND A HALF FROM NOW.
[2024-04-11 03:43] VITALS: BP 124/84
--- NOTE | 2024-04-11 05:44 | NUR ---
SHIFT SUMMARY ADMITTED FOR TOX. METABOLIC ENCEPHALOPATHY. FULL CODE. ISOLATION FOR C. DIFF. IV ANTIB AND LASIX ARE SCHEDULED. HE HAS STG. 4 COLON CANCER W/METS. HE SEES DR. HEADLEY OUTPT. PAIN AND ANXIETY MEDICATION GIVEN THIS SHIFT. HE IS CONFUSED, NONSENSICAL SPEECH. HE IS IMPULSIVE, ATTEMPTS TO EXIT THE BED FREQUENTLY.
[2024-04-11 07:30] VITALS: BP 120/78
[2024-04-11 14:53] VITALS: BP 134/88
--- NOTE | 2024-04-11 18:19 | NUR ---
PATIENT ORIENTED TO SELF ONLY. VSS, ON RA. CONTINUES TO ATTEMPT OOB AND REMAINS IN SOFT WRIST RESTRAINTS. BREAKS GIVEN EVERY HOUR FOR RANGE OF MOTION AND REPOSITONING. PATIENT DROWSY TODAY, BUT WAKES EASILY. COMMUNICATION IS NONSENSICAL AT TIMES. MOSTLY INCONT OF URINE, BUT DID USE URINAL A FEW TIMES WITH ASSISTANCE. CONTINUES TO REPORT LOWER ABDOMINAL PAIN, OXYCODONE GIVEN TO TREAT. PATIENT EATING WITH ASSISTANCE AND TAKING PILLS WELL WITH WATER. CONTACT ENTERIC PRECAUTIONS IN PLACE FOR C-DIFF, ORAL VANCO TO TREAT.
[2024-04-11 20:44] VITALS: BP 120/79
[2024-04-11] MEDS ORDERED: Acetaminophen 500 MG Tab PO PRN (23:00)
[2024-04-12 02:17] VITALS: BP 127/88
--- NOTE | 2024-04-12 05:42 | NUR ---
LICENSED SALES ASSISTANT PATIENT IS A&O TO SELF, CONFUSED, SEEMS DROWSY THROUGHOUT SHIFT, USES WORD SALAD WHEN COMMUNICATING, VITALS ARE STABLE, ON ROOM AIR, NOT ON TELE. PATIENT COMPLAINED OF PAIN TO RIGHT SHOULDER AND PRN PAIN MEDS WERE GIVEN. PATIENT IS IMPULSIVE AT TIMES BUT NOT IMPULSIVE DAY SHIFT. MD ORDERED SOFT WRIST RESTRINT TO BE REMOVED, BED ALARM IS ON, BED IS IN LOW POSITION AND CALL LIGHT IS IN REACH.
[2024-04-12 07:17] VITALS: BP 140/93
--- NOTE | 2024-04-12 11:10 | NUR ---
PATIENT RESTLESS, EASILY LOST IN THOUGHT, SCREAMS OUT SAYING PAIN BUT THEN DENIES PAIN, MEDICATED WITH OXYCODONE AND SEROQUEL, LEAH GIRLFRIEND AT BEDSIDE, HELPFUL WITH PAIN, BED/CHAIR ALARM ON, CALL LIGHT WITH IN REACH
[2024-04-12 13:45] VITALS: BP 138/102
[2024-04-12 16:00] VITALS: BP 127/81
--- NOTE | 2024-04-12 16:03 | NUR ---
REPORTED RIGHT SHOULDER PAIN TO DR ROSS, 2V OF RIGHT SHOULDER ORDERED, BUT IF PATIENT UNABLE TO STAY STILL CAN HAVE A PORTABLE DONE, ORDERED URGENT, PATEINT RESTED FOR 3-4 HOURS, AWAKE NOW AND SCREAMING AND MOANING OUT, BED ALARM ON, CALL LIGHT WITH IN REACH
--- NOTE | 2024-04-12 18:37 | NUR ---
NO ACUTE CHANGES, CONTINUES TO CRY OUT IN PAIN, RIGHT HSOULDER LOCALIZED, VSS, MENTATION IS LESS AND LESS WITH INTERACTION, PALLIATIVE CARE, DR PAZ ROUNDED ON PATIENT TODAY, NO CHANGES TO PRESENT CARE, MEDICATED FOR PAIN, BMX2, LIQUID BROWN NONODOUROUS, CALL LIGHT WITH IN REACH, BED.CHAIR ALARM ON, WILL RELAY TO PM RN
[2024-04-12 19:30] VITALS: BP 131/88
--- NOTE | 2024-04-13 04:41 | NUR ---
SHIFT SUMMARY PATIENT HAD INCREASED AGITATION AND CONFUSION WITH NON-SENSICAL SPEECH. AXOX TO SELF AND ONE ASSIST TO BR. IV ATIVAN 1 MG GIVEN AND SEROQUEL 25 MG ALTERNATE FOR AGITATION. REPORTED RIGHT SHOULDER PAIN AND OXYCODONE 10 MG AND IV DILAUDID 2 MG ALTERNATED. IMPULSIVE. DENIES CHEST PAIN, SOB, AND N/V. VSS/AFEBRILE. AWAKE FIRST THIRD OF THE SHIFT BEFORE RESTING. CALL LIGHT IN REACH. BED IN LOWEST POSITION AND ALARM ON. WILL CONTINUE TO MONITOR UNTIL DAY SHIFT NURSE ASSUMES CARE.
[2024-04-13 06:49] LABS: Hematocrit 30.6 % (37.0-53.0); Hemoglobin 10.1 g/dL (13.5-17.5); Mean Corpuscular HGB 28.4 pg (26.0-34.0); Mean Corpuscular Volume 86 fL (80-100); Mean Platelet Volume 9.2 fL (9.1-12.4); Platelet Count 110 K/mm3 (150-400); RDW Coefficient Variation 16.2 % (11.7-14.2); RDW Standard Deviation 50.2 fL (35.1-46.3); Red Blood Cell Count 3.56 M/mm3 (4.30-5.90); White Blood Cell Count 3.24 K/mm3 (4.00-11.30)
[2024-04-13 07:16] LABS: Albumin, Blood 2.8 g/dL (3.4-5.0); Albumin/Globulin Ratio 0.7 (0.8-1.8); Bun/Creatinine Ratio 18.4 (12.0-20.0); Calcium, Blood 8.2 mg/dL (8.5-10.1); Creatinine, Blood 0.71 mg/dL (0.60-1.20); Globulin, Blood 4.1 g/dL (2.2-4.0); Potassium, Blood 3.6 mmol/L (3.5-5.5); Total Protein, Blood 6.9 g/dL (6.4-8.2)
[2024-04-13 07:30] LABS: BASOPHILS PERCENT MAN 0 % (0-2); EOSINOPHILS ABSOLUTE MAN 0.09 K/mm3 (0.00-0.68); EOSINOPHILS PERCENT MAN 3 % (0-6); LYMPHOCYTES PERCENT MAN 28 % (21-46); MONOCYTES ABSOLUTE MAN 0.51 K/mm3 (0.16-1.47); MONOCYTES PERCENT MAN 16 % (4-13); NEUTROPHILS ABSOLUTE MAN 1.71 K/mm3 (1.96-9.15); SEG NEUTROPHILS PERCENT MAN 53 % (41-73); TOTAL CELLS COUNTED 100
[2024-04-13 07:37] VITALS: BP 116/75
--- NOTE | 2024-04-13 16:52 | NUR ---
NO ACUTE CHANGES, LOCALIZES PAIN AND THEN FALLS ASLEEP, ORIENTATION NOT IMPROVING, MORE ARGUEMENTATIVE AND NONDIRECTABLE, MEDICATED FOR PAIN/ANXIETY, LEAH GIRLFRIEND HERE FOR DOCTOR ROUNDS, CONTACTED PALLIATIVE TO DISCUSS FURTHER CODE CHANGE. SILVERIO LYNN AND DR ROSS AGREED TO A 2-3 DAY WAIT TO SEE IF PATIENTS MENTATION IMPROVES OR NOT. UNABLE TO MAKE NEEDS KNOWN DUE TO CONFUSION, BED/CHAIR ALARM ON, IMPULSIVE UNSTEADY GAIT, GAIT BELT IN PLACE, CALL LIGHT WITH IN REACH, ROOM NEAR NURSES WORK STATION, WILL RELAY TO PM VANESSA
[2024-04-13 19:18] VITALS: BP 133/81
--- NOTE | 2024-04-14 01:17 | NUR ---
PATIENT OUT OF BED MULTIPLE TIMES EVEN WITH BED ALARM ON. NOT ABLE TO FOLLOW DIRECTIONS OR REORIENT. IV ATIVAN 1 MG GIVEN FOR AGITATION AND PO SEROQUEL 25 MG. REPORTED RIGHT SHOULDER PAIN AND IV DILAUDID 2 MG GIVEN ALTERNATE WITH OXYCODONE 10 MG. BED ALARM ON. WCTM.
--- NOTE | 2024-04-14 06:11 | NUR ---
Pt unable to respond meaningful answers to questions, confused and delusional. Attempted to bed exit multiple times. Anxious and painful - PRN meds given and eventually fell asleep.
[2024-04-14 06:15] VITALS: BP 133/84
[2024-04-14 07:39] VITALS: BP 131/84
--- NOTE | 2024-04-14 09:17 | NUR ---
Care Conference: Spoke with pt's s/o Lanny this morning. She states feeling hesitant to try and care for Ronaldo at home with hospice. We discussed her concerns, specifically regarding equipment, medications and hospice staff availability. She is now willing to take the patient home on hospice. She requests a Tuesday 04/17 admission to give her time to prepare. Lanny and Lindsay are also agreeable to change pt's code status to DNR, and begin comfort care now. Received the orders from Dr. Kate. CM is aware.
[2024-04-14] MEDS ORDERED: Scopolamine Hydrobromide Patch TOP PRN (09:35)
[2024-04-14] MEDS ORDERED: LORazepam 1 MG Tab PO PRN (09:35)
[2024-04-14] MEDS ORDERED: Atropine Sulfate 1% Opth Soln 2ML BTL SL PRN (09:35)
[2024-04-14] MEDS ORDERED: Morphine Sulfate 20 MG/1ML 1 ML Oral Syringe SL PRN (09:35)
[2024-04-14] MEDS ORDERED: Acetaminophen 650 MG Supp PR PRN (09:35)
--- NOTE | 2024-04-14 09:57 | NUR ---
PATIENT CHANGED TO COMFORT CARE DNR, COMFORT CARE MEDICATIONS ACTIVE, PATIENT RESTING IN ROOM, RESPS EVEN AND SLOW, MOANING MINIMALLY AT TIMES THIS AM, PALLIATIVE SPOKE WITH LEAH SAWYER OF PATIENT
[2024-04-14 15:06] VITALS: BP 136/87
--- NOTE | 2024-04-14 17:48 | NUR ---
COMFORT CARE, DNR, ONLY OUT OF BED ONCE, BLADDER SCAN SHOWED 350, PATIENT AMBULATED TO BATHROOM AND VOIDED 400, OREINTED TO SELF AND FAMILY, MEDICATED WITH ROXINAL, NO GRIMACING, INFREQUENT MOANING, PALLIATIVE CARE CONSULTED, POSSIBLE HOME WITH HOSPICE ON WEDNESDAY, BED ALARM ON, DAUGHTER AT BEDSIDE, CALL LIGHT WITH IN REACH, WILL RELAY TO PM RN
[2024-04-14 19:17] VITALS: BP 118/75
[2024-04-15 04:16] VITALS: BP 132/82
--- NOTE | 2024-04-15 06:15 | NUR ---
SHIFT SUMMARY TOXIC METABOLIC ENCEPHALOPATHY, PLACED ON COMFORT CARE PATHWAY. ABLE TO AMBULATE TO THE BATHROOM TWICE PER SHIFT. REQUESTED ROXANOL FOR PAIN OF 8. APPEARED TO SLEEP ON AND OFF THROUGH SHIFT. ABLE TO MAKE NEEDS KNOW. BED IN LOW POSITION, RAILS X 2, CALL LIGHT WITH IN REACH.
[2024-04-15] MEDS ORDERED: Polyethylene Glycol 3350 17 gm PO PRN (12:10)
[2024-04-15] MEDS ORDERED: Sennosides 8.6 MG Tab PO PRN (12:15)
--- NOTE | 2024-04-15 16:55 | NUR ---
SHIFT SUMMARY MR RUTH IS RESTING CURRENTLY, FAMILY AT BEDSIDE. HE HAS HAD PERIODS OF RESTLESSNESS TODAY, PERSISTENTLY GETTING UP OUT OF BED, AGITATED IN DOORWAY OF HIS ROOM AND NOT FOLLOWING REDIRECTION. HE HAS SETTLED WITH ROXINOL AND WITH A DOSE OF SEROQUIL AND PO ATIVAN. HE HAS AWOKEN AND BEEN DIFFICULT TO REDIRECT AT TIMES. TRYING TO KEEP ON TOP OF HIS PAIN, HE C/O PAIN TO HIS RIGHT SHOULDER AND ABDOMEN. ROXINOL 10MG SEEMS TO HAVE BEEN EFFECTIVE. NO C/O NAUSEA. HE SAT UP IN THE CHAIR THIS MORNING AND SEEMED COMFORTABLE FOR A WHILE. FENTANYL PATCH IN PLACE ON RIGHT CHEST. URINARY INCONTINCE X2 THIS MORNING, NOT VOIDED YET THIS AFTERNOON. POOR PO INTAKE OF DIET AND FLUIDS. OFFERED SNACKS AND DRINKS. BED LOW, CALL LIGHT IN REACH, BED ALARM ON.
--- NOTE | 2024-04-16 06:28 | NUR ---
SHIFT SUMMARY PATIENT WAS ACTIVELY TRYING TO LEAVE ROOM. EXTREMELY DIFFICULT TO REDIRECT. UNABLE TO FOLLOW STAFF DIRECTIONS. CONTACT PRECAUTIONS ORDER DC'D. HE WAS GIVEN ATIVAN AND APPROXIMATELY 40 MINUTES LATER GIVEN SEROQUEL. CHARGE NURSE ASSIGNED SITTER TO MONITOR. PATIENT EVENTUALLY WENT TO SLEEP. PER NURSE DISCRETION HIS HS DOSE OF VANCOCIN WAS HELD. AWOKE AT 0430. BED IN LOW POSITION,RAILS TIMES 2, CALL LIGHT WITHIN REACH.
--- NOTE | 2024-04-16 16:16 | NUR ---
SHIFT SUMMARY MR RUTH IS RESTLESS AT TIMES, GETTING UP OUT OF BED AND CHAIR AND REDIRECTED FOR SAFETY. SOMETIMES DIFFICULT TO REDIRECT. GIVEN ROXINOL FOR DISCOMFORT WHICH DOES SEEM TO HELP HIM SETTLE. THIS MORNING HE HAD R SHOULDER PAIN BUT SOEMTIMES FOR GENERAL APPEARANCE OF DISCOMFORT. HE HAS DRANK WELL TODAY AND HAD GOOD UOP. MOSTLY CONTINENT OF URINE, ONE EPISODE OF INCONTINENCE. A LOT OF FAMILY VISITED HIM TODAY. HE INTERACTS WITH THEM BUT IS VERY CONFUSED AND FORGETFUL. MEDIPORT UNACCESSED R CHEST. FENTANYL PATCH R CHEST. NO RESP DISTRESS OR NAUSEA NOTED TODAY. HE WAS GIVEN SENNA AND MIRILAX THIS SHIFT BUT NO STOOL SO FAR. BED AND CHAIR ALARMS USED. BED LOW, CALL LIGHT IN REACH.
--- NOTE | 2024-04-17 06:15 | NUR ---
SHIFT SUMMARY PATIENT APPEARED TO SLEEP COMFORTABLY UNTIL 2200. WHEN AWAKE HE TRIED EXITING HIS ROOM SEVERAL TIMES ASKING FOR A PEN AND WANTING TO MAKE PHONE CALLS TO SEVERAL PEOPLE. PATIENT WAS REDIRECTABLE TO BED. WARM BLANKET PROVIDED. PATIENT TALKED IN LENGTH WHILE LYING DOWN ABOUT BEING A KID AND RACING DIRT BIKES WITH HIS FRIENDS. PATIENT AWOKE TO USE BATHROOM THREE TIMES THROUGH OUT THE NIGHT WITH ASSIST AND RETURNED TO BED. APPEARS TO BE MORE ORIENTATED AND REDIRECTABLE AT THIS TIME. PATIENT STATED HIS STOMACH WAS HURTING DECLINED PAIN MEDICATION AT THIS TIME BUT ACCEPTED A WARM WASH CLOTH BED IN LOW POSITION CALL LIGHT WITHIN REACH, RAILS TIMES 2.
--- NOTE | 2024-04-17 15:49 | NUR ---
Pt more aggitated Review of pymptoms with RN Chloe and team.
--- NOTE | 2024-04-17 17:31 | NUR ---
Med changes made per pharmacy recommendation and with consultation with Dr. Ying. Hoping the changes will help with pain, anxiety and inflammation. Disgussed with bedside RN.
[2024-04-17] MEDS ORDERED: Haloperidol Lactate 2 MG/ML Conc 1ML Dose PO PRN (17:35)
--- NOTE | 2024-04-17 18:09 | NUR ---
SHIFT SUMMARY PATIENT A/OX1 THIS SHIFT AND CONFUSED. LEAH, PATIENT'S PARTNER, AT BEDSIDE BRIEFLY THIS AM AND [place] [employer] WITH HOSPICE DISCUSSED DISCHARGE WITH HER. PLAN IS TO DISCHARGE TOMORROW. PALLIATIVE CARE TEAM, ATTENDING, AND GENERATION MECHANIC HELPER INFORMED THIS AFTERNOON THAT PATIENT IS WITH INCREASING AGITATION, CONFUSION, AND ANXIETY. PATIENT DIFFICULT TO REDIRECT. SYMPTOMS APPEARED TO WORSEN AFTER ADMINISTRATION OF ROXANOL. PATIENT PACING HIS ROOM, UNABLE TO SIT FOR PERIODS LONGER THAN 2 MINUTES, APPEARS TO BE FALLING ASLEEP WHILE STANDING. PATIENT GIVEN ATIVAN AND SEROQUEL PER NOV. SECOND DOSE OF ATIVAN APPEARS TO BE EFFECTIVE PATIENT IS CURRENTLY LYING IN BED SLEEPING. PATIENT HAD BOWEL MOVEMENT THIS AM. FENTANYL PATCH REPLACED TODAY. PATIENT WITH VERY LOW APPETITE AND COMPLAINING OF NAUSEA AFTER ROXANOL ADMINISTRATION, REGLAN GIVEN PER NOV. ALSO COMPLAINING OF HEARTBURN, TUMS GIVEN. PATIENT ALSO COMPLAINING OF HEAD AND EAR PRESSURE AND THAT HIS EARS ARE POPPING . DENIES TINNITUS. NO OTHER CONCERNS AT THIS TIME.
[2024-04-17] MEDS ORDERED: Diazepam 5 MG Tab PO SCH (21:00)
[2024-04-17] MEDS ORDERED: Dexamethasone 2 MG Tab PO SCH (21:00)
[2024-04-18 04:10] VITALS: BP 128/88
--- NOTE | 2024-04-18 04:48 | NUR ---
QUARRY PLUG AND FEATHER DRILLER SUMMARY PT ALERT AND ORIENTED TO SELF. PT IS CONFUSED AND UNABLE TO FOLLOW COMMANDS. PT IS DIRECTABLE WITH CUES AND ASSIST. PT DOES NOT KNOW WHERE HE IS. PT HAVING VISIUAL/ADUIBLE HALLUCINATIONS WHEN AWAKE T/O THE NIGHT. MULPTIPLE ATTEMPTS BY PT TO EXIT HIS ROOM AND ENTER OTHER PT ROOMS IN THE NIGHT. BED ALARM IN PLACE. PT IS CALM AND FAIRLY COOPERATIVE--MILD/BRIEF FRUSTRATION/AGITATION. PT HAVING URINARY FREQUENCY/URGENCY AND INCONTINENCE T/O THE NIGHT. PT IS MOSTLY NOT ABLE TO COMMUNICATE NEEDS. CALL LIGHT ACCESSIBLE. ALARMS FOR CHAIR/BED USED WHEN PT UNATTENDED. REGULAR INTERVAL ROUNDING COMPLETE Q1-2HOURS.
[2024-04-18] MEDS ORDERED: Diazepam 5 MG Tab PO ONE (12:10)
--- NOTE | 2024-04-18 12:18 | NUR ---
Spoke with Dr. Ying by phone. Rcv'd orders to increase Diazepam from 5 mg to 10 mg BID. Since 5 mg Diazepam has be administered at 0800, give a one time dose of 5 mg now. Scheduled Seroquel at bedtime to assist with mood stability. Fentanyl patch dose increased last night, administration of increased dose should have started yesterday not with next patch change. New Fentanyl patch increased dose to be changed now. Update provided to covering Yue MENDEZ as primary RN was not available.
--- NOTE | 2024-04-18 18:33 | NUR ---
SHIFT SUMMARY PATIENT ALERT AND ORIENTED TO SELF, VERY RESTLESS THIS AM. PALLIATIVE CARE NOTIFIED AND INCREASED DOSES OF VALIUM AND FENTANYL PATCH GIVEN PER MAR. PRN ATIVAN GIVEN X2 AND PRN SEROQUEL GIVEN X2 TODAY WHEN PATIENT WAS RESTLESS, AMBULATING THROUGHOUT HIS ROOM AND NOT REDIRECTABLE. PATIENT NEEDING MEDICATIONS CRUSHED INTERMITTENTLY DUE TO DIFFICULTY FOLLOWING DIRECTIONS AND POOR MENTATION. LEAH, PATIENT S PARTNER, WAS AT BEDSIDE AROUND NOON TODAY. PLAN IS TO DISCHARGE HOME ON HOSPICE ONCE PATIENT S BEHAVIORS, AGITATION AND RESTLESSNESS, ARE MANAGEABLE FOR FAMILY. PATIENT COMPLAINING OF CONSTIPATION THIS MORNING AND WAS GIVEN BOWEL MEDS PER NOV. PATIENT HAS BEEN INCONTINENT OF BOWEL AND BLADDER TODAY DUE TO URGENCY. PATIENT HAVING DIFFICULTY VOCALIZING HIS NEEDS, SPEECH HAS BECOME NONSENSICAL, AND PATIENT HAVING WORD FINDING DIFFICULTY. PATIENT BECOMES INCREASINGLY RESTLESS WHEN NEEDING TO USE THE RESTROOM, BUT UNABLE TO VOCALIZE THE NEED TO USE THE BATHROOM. PATIENT ALSO WAS NOT ABLE TO FOLLOW COMMANDS TO USE THE TOILET OR BEDSIDE COMMODE. 2 STAFF MEMBERS NEEDED TO ASSIST PATIENT TO RESTROOM AND PATIENT WAS NOT ABLE TO SIT ON THE TOILET. HE HAD A BOWEL MOVEMENT IN STANDING POSITION WHILE ATTEMPTING TO URINATE IN THE TOILET. SINCE USING THE RESTROOM, PATIENT HAS RETURNED TO BED AND IS BACK TO RESTING COMFORTABLY. PATIENT HIGH FALL RISK, BED AND CHAIR ALARMS IN PLACE. NO OTHER CONCERNS AT THIS TIME.
[2024-04-18] MEDS ORDERED: Diazepam 5 MG Tab PO SCH (21:00)
[2024-04-18] MEDS ORDERED: QUEtiapine Fumarate 50 MG TAB PO SCH (21:00)
--- NOTE | 2024-04-19 05:47 | NUR ---
SHIFT SUMMARY 58 YR M ADMITTED ON 04/07/24. DNR. COMFORT CARE. PT HAS BEEN EXTREMELY CONFUSED ALL SHIFT AND IS NON REDIRECTABLE. HE CONTINUALLY GOT OUT OF BED AND WAS UNABLE TO FOLLOW SIMPLE INSTRUCTION. HE TALKS ABOUT RANDOM THINGS OUT OF CONTEXT, AND OCCASIONALLY HAS WORD SALAD. PT IS A VERY HIGH FALL RISK AND AFTER 8 OR 9 ATTEMPTS AT GETTING UP ON HIS OWN, A ISMAEL VEST WAS PUT ON HIM FOR HIS OWN SAFETY. RESTRAINT ORDER OBTAINED AND ASSESSMENT INITIATED. WILL CONTINUE TO MONITOR. BED IN LOW POSITION AND CALL LIGHT IN REACH.
[2024-04-19] MEDS ORDERED: OxyCODONE HCL 5 MG TAB PO PRN (17:10)
[2024-04-19] MEDS ORDERED: QUEtiapine Fumarate 25 MG Tab PO SCH (17:10)
--- NOTE | 2024-04-19 17:11 | NUR ---
Medication review performed with Dr. Ying. The goal is appropriate symptom management. Pt has continued to exhibit symptoms of anxiety and agitation. Roxanol d/c'd as it appears to increase agitation. Replaced with oxycodone. Seroquel scheduled and remains available as prn for breakthrough. If the patient remains agitated, bedside RN to alternate prn lorazepem with seroquel, so pt can have medication for anxiety/agitation as often as every 2 hours if needed.
--- NOTE | 2024-04-19 17:29 | NUR ---
report received verified pt a/o x 1 very pleasent and easily redirectable but pt very confused, uriel in place other rojas pt would possibly trip and falll because he wont stay in bed.. pt being medicated every 2 hours with seroquil and lorazepam, roxanol being held at the moment because it is documented and i have seen that pt might be becoming agitaed with roxanol. after discussing with case management social worker and charge nurse it was decided to try to used roxanol again. After china administration with 30 min pt start to show signs or agitation and increased confusion with some combativness. palative care is now looking into possible change in medication administration. lorazepam was given and after about an hour pt showed signs of being tired and was assisted back to bed and is now sleeping peacfully
[2024-04-19 20:50] VITALS: BP 125/84
--- NOTE | 2024-04-20 05:46 | NUR ---
SHIFT SUMMARY 58 YR M ADMITTED ON 04/07/24. DNR. COMFORT CARE. PT IS STILL VERY CONFUSED AND IMPULSIVE BUT W/ PRN MEDS HE HAS SLEPT OFF AND ON ALL NIGHT. PRN MEDS GIVEN APPROPRIATE. FAMILY IN ROOM AT BEGINNING OF SHIFT AND THIS NURSE SPEND SOME TIME WITH THEM EXPLAINING PRN MEDS, USE OF RESTRAINTS, AND PT BEHAVIORS. PT WAS INCONTINENT OF BLADDER AND BOWEL THIS SHIFT. NO NEW EVENTS TO REPORT. WILL CONTINUE TO MONITOR. BED IN LOW POSITION AND CALL LIGHT IN REACH.
--- NOTE | 2024-04-20 13:40 | NUR ---
CALL MADE TO DR. HUGO HAASING MED REGIMEN FROM THIS MORNING AND HOW IT MAY BE TOO SEDATING. PATIENT HAS BEEN GROGGY AND SOMNULENT SINCE AFTER ADMINISTRATION OF MEDS. PATIENT HAS WOKEN UP ONCE SINCE MED ADMINISTRATION AND WAS ABLE TO ASSIST THE PATIENT TO THE RESTROOM TO ATTEMPT TO GO THE BATHROOM. PATIENT WENT BACK INTO THE CHAIR AND FELL BACK ASLEEP. HIS RESPIRATIONS ARE EVEN AND UNLABORED.
--- NOTE | 2024-04-20 14:56 | NUR ---
PATIENT BECAME MORE ALERT AND WAS ABLE TO USE THE RESTROOM. HE ATE HALF OF HIS MAGIC YOGURT AND DRANK SOME WATER. ASKED PATIENT YES OR NO QUESTIONS HE SEEMS TO BE ABLE TO ANSWER AT TIMES; WHEN ASKED IF HE WAS HUNGRY OR THIRSTY HE SAID YES AND PROCEEDED TO EAT AND DRINK UNTIL HE WAS NO LONGER HUNGRY OR THIRSTY; HE VOICED THAT HE WAS DONE WITH EATING HIS YOGURT AND EXPRESSED THAT HE COULDN'T THINK OF ANYTHING WHEN I ASKED HIM IF THERE WAS ANYTHING ELSE I COULD DO FOR HIM AND DENIED PAIN. PATIENT IS STILL GROGGY AND DOSES OFF. I WAS ALSO ASKING HIM ABOUT WATCHING TV AND IF THERE IS ANYTHING INPARTICULAR HE LIKES TO WATCH AND HE SAID THAT WHAT WAS ON WOULD BE FINE AND HE WAS ABLE TO TELL ME HIS BIRTHDAY BEFORE DOSING OFF.
--- NOTE | 2024-04-20 16:11 | NUR ---
SHIFT SUMMARY: PT IS A&OXSELF, HE STARTED THE MORNING OFF BY GETTING UP OUT OF BED; SETTING OFF THE BED ALARM AND STUMBLING AROUND THE ROOM, HE WAS ASSISTED TO THE RESTROOM WHERE HE WAS HARD TO DIRECT. HE WAS WALKED BACK TO THE BEDSIDE RECLINER WHERE HE WAS REFUSING TO SIT AND ATTEMPTING TO GET UP WHEN THE ISMAEL VEST WAS PLACED; DR. ARIAS WAS NOTIFIED AND NEW ORDER INITIATED. PATIENT ATE BREAKFAST AND TOOK MEDICATIONS. SEE NURSE NOTE ABOUT SEDATION POST MED ADMINISTRATION AND ADDITIONAL NURSE NOTE WHEN PATIENT BECOME ALERT THIS AFTERNOON. PATIENT IS CURRENTLY IN HIS BEDSIDE RECLINER, ISMAEL IN PLACE, CALL LIGHT WITHIN REACH, ALONG WITH WATER, AND HE IS SLEEPING-RESP EVEN AND UNLABORED. FAMILY WAS BY THIS MORNING, BUT NOT AT THE BEDSIDE NOW. NO SIGNS OR SYMPTOMS OF DISTRESS, PLAN OF CARE ONGOING.
--- NOTE | 2024-04-21 04:32 | NUR ---
SHIFT SUMMARY 58 YR M ADMITTED ON 04/07/24. DNR. COMFORT CARE. PT HAS BEEN AGITATED FOR MOST OF THIS SHIFT AND HAS BEEN YELLING OUT ALL NIGHT. WHEN ASKED IF HE WAS IN PAIN HE STATES THAT HIS LOWER ABDOMEN HURT. HE HAS BEEN MEDICATED TWICE W/ OXYCODONE PER EMAR AND HAS BEEN GIVEN PRN MEDS TO HELP HIM RELAX AND SLEEP, BUT THEY HAVE NOT BEEN AFFECTIVE. MOST OF THE THINGS HE SAYS DO NOT MAKE SENSE, AND HE IS STILL VERY CONFUSED. ISMAEL HAS REMAINED ON FOR PT SAFETY HE IS CONSTANTLY TRYING TO GET UP AND IS VERY WEAK AND UN STEADY ON HIS FEET.
--- NOTE | 2024-04-21 17:59 | NUR ---
SHIFT SUMMARY: PATIENT HAS BEEN DOING WELL TODAY; NOT REQUIRING RESTRAINTS AND HAS BEEN ON TOP OF HIS MEDICATIONS. HE HAS BEEN EATING/DRINKING AND GOING THE RESTROOM. LATE THIS AFTERNOON HE DID START C/O NAUSEA AND HIS STOMACH HURTING. MEDICATION PROVIDED NEEDED. PATIENT WILL GET UP, BUT OVERALL COOPERATIVE AND PLEASANT AND CAN BE REDIRECTED WITH TIME. NOTICED THAT HIS EYES ARE MORE WATERY; HARD TO TELL IF IS IS CORRELATED TO EATING/DRINKING OR NOT, BUT SEEMS TO BE THE CASE. NO OTHER SIGNS OF ASPIRATION. HE TRIES HIS BEST TO COMMUNICATE AND MAKE HIS NEEDS KNOWN AND CAN ANSWER SOME QUESTIONS-YES OR NO. PATIENT IS CURRENTLY IN HIS BEDSIDE RECLINER, THIS RN PRESENT, HE IS WRITING ON A PIECE OF PAPER, ASKED FOR ME TO HELP HIM SPELL THE WORD "RABBIT" PATIENT NO ABLE TO WRITE OUT WORD, HE ALSO REQUEST TO LISTEN TO CARMEN [place]. HE CONTINUES TO ASK ME QUESTIONS AND TO SPELL OUT WORDS. NOT MAKING MUCH SENSE. NO SIGNS OR SYMPTOMS OF DISTRESS, PLAN OF CARE ONGOING.
--- NOTE | 2024-04-22 06:16 | NUR ---
NO ACUTE CHANGES DURING SHIFT. PT SLEPT MOST OF SHIFT, OCCASIONALLY WAKING UP TO BED EXIT. PRN PAIN MEDS AND ANXIETY MEDS ADMINISTERED, PT ABLE TO REST COMFORTABLY AND RETURN TO SLEEP. INCONTINENT URINATION. NO AGGRESSIVE BEHAVIOR BUT CAN BE DIFFICULT TO REDIRECT AT TIMES.
--- NOTE | 2024-04-22 17:08 | NUR ---
SHIFT SUMMARY: PATIENT HAS BEEN RESTING OF THE MOST DAY, DID SKIP HIS SCHEDULED DOSE OF SEROQUEL AT 1310 AND 1710 DUE TO LACK OF ALERTNESS AND ABILITY TO ADMINISTER MEDICATION. PATIENT FAMILY HAS BEEN IN AND OUT VISITING THROUGHOUT THE DAY. PATIENT HAS GOTTEN UP A FEW TIMES TO USE THE RESTROOM. HIS ORAL INTAKE HAS BEEN MINIAL TODAY COMPARES TO PREVIOUS DAYS. PATIENT WILL C/O ABD PAIN. PATIENT IN BED, BED ALARM SET, AT BEDSIDE, NO SIGNS OR SYMPTOMS OF DISTRESS, RESP EVEN AND UNLABORED, PLAN OF CARE ONGOING.
--- NOTE | 2024-04-22 17:12 | NUR ---
Pt resting several family memebers at bedside. Review of symptoms with nursing. He is decribing some deep visceral pain to the nurse. Will update physician.
--- NOTE | 2024-04-23 06:27 | NUR ---
NO ACUTE CHANGES DURING SHIFT. PT SLEPT MOST OF SHIFT, OCCASIONALLY WAKING UP AND EXITING BED, CALM DEMEANER AND REDIRECTIBLE. PRN ANXIETY, AGITATION AND PAIN MEDS ADMINISTERED, PT IS ABLE TO REST COMFORTABLY WITH CURRENT REGIMEN WHEN ADMINISTERED Q4 HOURS. POLST NEEDS TO BE UPDATED TO ALIGN WITH CURRENT DNR ORDERS
--- NOTE | 2024-04-23 16:05 | NUR ---
PT IS ON COMFORT CARE MEASURES AND HAS BEEN RESTING MOST OF THE DAY. WHEN PT HAS BEEN AWAKE HE IS VERY IMPULSIVE AND IS NOT SURE WHAT HE WANTS WHEN GETTING UP. IS INCONTENT AT TIMES. PT HAS NOT BEEN EATING OR DRINKING MUCH TODAY. BED ALARM AND CHAIR ALARM ARE IN USE. PT AOX1 AT THIS TIME WILL CONTINUE TO MONITOR.
--- NOTE | 2024-04-24 05:57 | NUR ---
NO ACUTE CHANGES DURING SHIFT. SLEEPS OFTEN BUT WAKES UP GROANING OCCASIONALLY. PAIN, ANXIETY, AND AGITATION MEDS ADMINISTERED PRN. REQUIRES MULTIPLE CUES TO SWALLOW MEDICATIONS, BECOMING INCREASINGLY DIFFICULT FOR PT TO SWALLOW.
--- NOTE | 2024-04-24 08:30 | NUR ---
CALL TO INFECTIOUS DISEASE: PER PROTOCOL, PATIENT SHOULD STAY IN ISOLATION FOR ENTIRETY OF HOSPITAL STAY. BEING THAT PATIENT TESTED POSTIVE >10 DAYS AGO AND HAS HAD 10 DAYS IV ABx, ID WILL LOOK FURTHER INTO THIS.
--- NOTE | 2024-04-24 09:29 | NUR ---
BED ALARM SOUNDED THIS MORNING AND PATIENT ATTEMPTING TO GET UP ON OWN. THIS RN AND WILMAR CHRISTINE ASSISTED BACK INTO BED. ASKED IF PATIENT EXPERIENCING PAIN TO WHICH HE STATED YES. THIS RN AND BREAK RN ATTEMPTED TO ADMINISTER MEDS AND PATIENT DIFFICULT TO ROUSE FOR MEDICATIONS. WILL ATTEMPT AGA LATER TIME.
--- NOTE | 2024-04-24 12:37 | NUR ---
PATIENT UNABLE TO SWALLOW PILLS OR FOLLOW DIRECTION TO SWALLOW PILLS. WILL REACH OUT TO PROVIDER TO CHANGE MEDS TO SL ROXANOL AND LORAZEPAM PATIENT HAS NO CURRENT IV ACCESS.
--- NOTE | 2024-04-24 12:42 | NUR ---
PER DR. MANZO, NO PO MEDS TO BE ADMINISTERED. ORDER FOR COMFORT MEDS MORPHINE SULFATE AND LORAZEPAM.
[2024-04-24] MEDS ORDERED: Morphine Sulfate 20 MG/1ML 1 ML Oral Syringe SL PRN (14:45)
--- NOTE | 2024-04-24 14:47 | NUR ---
PATIENT APPEARS TO BE TRANSITIONING. LEAH ELENA, RN, BSN IN PALLIATIVE CARE NOTIFIED. SHE WILL CONTACT FAMILY.
--- NOTE | 2024-04-24 15:35 | NUR ---
FAMILY NOTIFIED OF TRANSITIONING. MANAN MATTHEW, ACC, WILL ORDER.
--- NOTE | 2024-04-24 17:38 | NUR ---
PATIENT WITH GRIMACING AND WINCING. MEDICATED 10MG MORPHINE SULFATE.
--- NOTE | 2024-04-24 18:05 | NUR ---
DAY SHIFT SUMMARY: DIFFICULT TO ROUSE, TODAY; MOSTLY PAINFUL STIMULI. EYES FLUTTER TO NAME, BUT IS UNRESPONSIVE MOST OF DAY. TWO EPISODES OF IMPULSIVENESS IN WHICH HE ATTEMPTED TO GET OUT OF BED, BUT WAS UNABLE TO COMMUNICATE WHERE HE WANTED TO GO OR WHAT HE WANTED TO DO. ALL ROUTINE PO MEDS DC'd; PO/SL COMFORT MEDS, ONLY. FAMILY NOTIFIED OF TRANSITIONING AND ARE NOW AT BEDSIDE. PRN LORAZEPAM x1 AND PRN MORPHINE SULFATE x2 ADMINISTERED SINCE MED CHANGES. PALLIATIVE CARE, CHARGE, PROVIDER AND CARE MANAGEMENT ALL NOTIFIED OF CHANGE IN CONDITION. BED IN LOWEST POSITION. CALL LIGHT WITHIN REACH. EGG BREAKER PROVIDED ORAL CARE. REPORT TO BE GIVEN TO ONCOMING NURSE.
--- NOTE | 2024-04-24 18:41 | NUR ---
PATIENT HAS MEDIPORT RIGHT UPPER CHEST WALL THAT IS NOT ACCESSED.
--- NOTE | 2024-04-25 07:07 | NUR ---
SHIFT SUMMARY PT IS OBTUNDED, BUT OPENS EYES WITH PAIN AND REPOSITIONING. ON COMFORT CARE. MOANS IN PAIN, MEDICATED PER EMAR WITH 10MG ROXANOL AND 1MG ATIVAN NEEDED TO ASSURE PT IS COMFORTABLE. REPOSITIONED TOLERATED. INCONTINENT OF URINE, BRIEF IN PLACE. NO BM THIS SHIFT. BED IN LOWEST POSITION, FREQUENT ROUNDING DONE. ENTERIC PRECAUTIONS MAINTAINED.
--- NOTE | 2024-04-25 16:32 | NUR ---
Pt appears to be resting comfortably at this time. He has been receiveing roxanol approximately q 4 hrs with good pain relief. The patient should continue receiving 20mg Roxanol every 4 hours, and more often if not effective for pain. If pt begins to moan or grimace, bedside RN to medicate with Roxanol as soon as grimace. Likewise, if the patient remain comfortable, it's imperative we continue to keep him comfortable by continuing current regimen of roxanol every 4 hours, even throughout the night, as it has been a challenge to keep pt comfortable t/o hospital stay,
--- NOTE | 2024-04-25 18:11 | NUR ---
SHIFT SUMMARY: COMFORT CARE PT. MEDICATED FOR PAIN SEVERAL TIMES THIS SHIFT. TALK OF MORPHINE DRIP DISCUSSED WITH FAMILY. PHARMACY DENIED THIS REQUEST. FAMILY UPDATED ON PLAN AND NOT HAPPY WITH DECISION. FAMILY ENCOURAGING MORPHINE DRIP TO SPEED UP PROCESS PT WOULD NOT WANT TO BE IN THIS STATE. EXPLAINED TO FAMILY THAT [facility] IS NOT AN ASSISTED SUICIDE AND WOULD NOT HELP TO "SPEED UP PROCESS" AND THAT WE ARE KEEPING PT COMFORTABLE POSSIBLE. MANAGER SPEECH AWARE OF CONVERSATION. STAFF TO KEEP ON TOP OF ROXANOL FOR PAIN COVERAGE. ROTATED Q2. CONTACT ENTERIC PRECAUTIONS IN PLACE FOR CDIFF. FAMILY AT BEDSIDE. CALL LIGHT IN REACH. BED IN LOWEST POSITION.
--- NOTE | 2024-04-26 07:55 | NUR ---
SHIFT SUMMARY PT IS OBTUNDED, BUT OPENS EYES WITH PAIN AND REPOSITIONING. ON COMFORT CARE. PT'S S.O. AND SISTER IN ROOM VISITING AT BEGINNING OF THIS SHIFT. PT WILL OCCASIONALLY MOAN, MEDICATED PER EMAR WITH 20MG ROXANOL AND 1MG ATIVAN NEEDED TO ASSURE PT IS COMFORTABLE. REPOSITIONED TOLERATED. INCONTINENT OF URINE, BRIEF IN PLACE. BED IN LOWEST POSITION, FREQUENT ROUNDING DONE. ENTERIC PRECAUTIONS MAINTAINED.
--- NOTE | 2024-04-26 11:53 | NUR ---
ASSESSED PT FOR EOL COMFORT CARE. REVIEWED COMFORT MEDICATIONS WITH PRIMARY RN. PROVIDED ORAL CARE. DIFFUSE EDEMA NOTED. BUE/BLE WARM TO THE TOUCH. WEAK PEDAL PULSES. PAIN IS 7/10 PER FLACC SCALE. FURROWED BROW, TENSE/RIGID, MOANS WITH MOVEMENT AND ORAL CARE. PLAN: CONTINUE WITH 20 MG ROXANOL EVERY 4 HOURS WITH ADDITIONAL ADMINISTRATION, UP TO EVERY HOUR NEEDED FOR EFFECTIVE PAIN MANAGEMENT. ROUTINE CHECKS FOR NON-VERBAL CUES OF PAIN/ANXIETY. PALLIATIVE CARE TO REMAIN AVAILABLE. JOINT VISIT WITH PRIMARY RN AT BEDSIDE.
--- NOTE | 2024-04-26 18:34 | NUR ---
SUMMARY- PT HAS BEEN COMATOSE TODAY. THIS AM GRIMACE AND MOANING, RR 20. THE DAY PROGRESSED, SALVATORE STOKING RESP, VERY MOIST, UNABLE TO CLEAR MOISTURE WITH SUCTION. USING ATRPINE DROPS AND SCOPOLOMINE. ROXONOL 20MG CLOSE TO EVERY HOUR AND ATIVAN ALTERNATING DOSES. RESP HAS INCREASED WITH MORE VISIBLE AIR HUNGER AND RESP RATE SHALLOW AND IN THE MID 30'S. FINALLY ADDED OXYGEN ORALLY TO ALLEVIATE SS OF AIR HUNGER, THIS VISIBALLY IMPROVED PT COMFORT, AND RR 16. FAMILY ON AND OUT ALL DAY, SEEM TO BE COPING WITH LOSS A GROUP. PT TURNED Q2. WILL REPORT TO NOC SHIFT.
--- NOTE | 2024-04-27 06:50 | NUR ---
END OF SHIFT SUMMARY PT REMAINS ON COMFORT CARE. MEDICATED PRN WITH ROXANOL AND ATIVAN, PT APPEARS COMFORTABLE WITH NO S/S OF DISTRESS. FAMILY AT BEDSIDE AT NIGHT, REITERATED THEY DO NOT WANT 4 PEOPLE TO VISIT PT - LIST IN PAPER CHART. OFFERED TO MOVE PT'S ROOM SOME OF THE 4 PEOPLE HAVE ALREADY VISTED PT IN 346 AND AWARE HE IS HERE. FAMILY TO DECIDE IF THEY WANT TO DO THIS BUT DECLINED FOR NOW. NO ACUTE CHANGES DURING NIGHT.
--- NOTE | 2024-04-27 20:03 | NUR ---
SUMMARY- PT COMATOSE. TURNED Q2. COMFORT CARE. ROXONOL PRN APPROX Q1-2 HRS. RR EVEN 22 MOST OF SHIFT, NO SS OF AIR HUNGER. PT APPEARED COMFORTABLE NO FURROW IN BROW, NO SS OF PAIN. FAMILY IN AND OUT ALL DAY. CALLED RN INTO ROOM AT 1954, PT WAS ASSESSED BY 2 RN'S, NORMA AND FRANKLYN, NO APICAL PULSE ASCULTATED NO BREATHING. NOTIFIED BASEBALL HAND SEWER AYDEE. FAMILY AT BEDSIDE, GREIVING APPROPRIATELY. WILL NOTIFY US OF HOME BEFORE THEY LEAVE.
== END 2024-04-27 19:55 | DRG 374 ==
LOC: ER 01:05 → MEDS 06:13
PROVIDERS: Emergency Medicine; Internal Medicine; ADMIT Student in an Organized Health Care Education/Training Program
PROC: 0T9B70Z Drainage of Bladder with Drainage Device, Via Natural or Artificial Opening (ICD-10-PCS; principal; 2024-04-07)
PROC: 3E03329 Introduction of Other Anti-infective into Peripheral Vein, Percutaneous Approach (ICD-10-PCS; 2024-04-07)
PROC: 009U3ZX Drainage of Spinal Canal, Percutaneous Approach, Diagnostic (ICD-10-PCS; 2024-04-07)
DX: C18.6 Malignant neoplasm of descending colon (principal); G93.41 Metabolic encephalopathy; R40.20 Unspecified coma; A04.72 Enterocolitis due to Clostridium difficile, not specified as recurrent; C78.7 Secondary malignant neoplasm of liver and intrahepatic bile duct; F05 Delirium due to known physiological condition; E44.0 Moderate protein-calorie malnutrition; C78.89 Secondary malignant neoplasm of other digestive organs; R18.8 Other ascites; C77.2 Secondary and unspecified malignant neoplasm of intra-abdominal lymph nodes; C18.7 Malignant neoplasm of sigmoid colon; Z66 Do not resuscitate; Z51.5 Encounter for palliative care; K74.60 Unspecified cirrhosis of liver; I10 Essential (primary) hypertension; E78.5 Hyperlipidemia, unspecified; K21.9 Gastro-esophageal reflux disease without esophagitis; K44.9 Diaphragmatic hernia without obstruction or gangrene; Z78.1 Physical restraint status; R93.0 Abnormal findings on diagnostic imaging of skull and head, not elsewhere classified; E86.0 Dehydration; I25.10 Atherosclerotic heart disease of native coronary artery without angina pectoris; G89.3 Neoplasm related pain (acute) (chronic); R45.1 Restlessness and agitation; Z96.652 Presence of left artificial knee joint; Z68.24 Body mass index [BMI] 24.0-24.9, adult; Z88.8 Allergy status to other drugs, medicaments and biological substances; Z79.899 Other long term (current) drug therapy; Z79.01 Long term (current) use of anticoagulants; Z79.891 Long term (current) use of opiate analgesic; I25.2 Old myocardial infarction; Z98.890 Other specified postprocedural states; Z95.5 Presence of coronary angioplasty implant and graft; Z87.891 Personal history of nicotine dependence; Z82.49 Family history of ischemic heart disease and other diseases of the circulatory system
CPT/HCPCS: 36415; 70553; 73030; 74177; 80053; 82140; 82945; 82947; 83605; 83735; 84157; 85025; 85610; 87070; 87205; 87324; 87507; 88108; 89051; 92526; 92610; 94760; 94762; 96361; 96374-59; 96375; 99285-25; A9270; A9579; J0456; J1170; J1630; J1650; J1885; J2060; J2270; J2405; J7030; J7050; J7120; Q9967